=== PATIENT | female | born 1940 | race Caucasian/White ===

== ENCOUNTER 2020-05-02 07:12 | Outpatient (REF) | payer MEDICARE, OTHER, SELFPAY ==
[2020-05-02 07:45] LABS: MANUAL DIFF FLAG NO
[2020-05-02 07:49] LABS: Basophils Absolute Auto 0.1 X10*3/uL (0.0-0.2); Basophils Percent Auto 1.2 % (0-2); Eosinophils Absolute Auto 0.2 X10*3/uL (0.0-0.4); Eosinophils Percent Auto 4.1 % (0-4); Hematocrit 40.1 % (37-47); Hemoglobin 13.3 g/dl (12.0-16.0); Imm Gran Abs Auto 0.01 X10*3/uL (0.00-0.03); Imm Gran Pct Auto 0.2 % (0.0-0.4); Lymphocytes Absolute Auto 1.5 X10*3/uL (1.2-4.9); Lymphocytes Percent Auto 29.2 % (20-40); Mean Corpuscular HGB Conc 33.2 g/dl (31.0-35.0); Mean Corpuscular Hemoglobin 30.2 pg (27.0-33.0); Mean Corpuscular Volume 91.1 fL (80-98); Mean Platelet Volume 9.7 fL (9.4-12.3); Monocytes Absolute Auto 0.7 X10*3/uL (0.1-1.2); Monocytes Percent Auto 12.9 % (2-11); Neutrophils Absolute Auto 2.7 X10*3/uL (2.0-8.3); Neutrophils Percent Auto 52.4 % (45-73); Platelet Count 54 X10*3/uL (160-400); White Blood Count 5.1 X10*3/uL (4.8-10.8)
[2020-05-02 08:28] LABS: Erythrocyte Sedimentation Rate 5 MM/HR (0-20)
[2020-05-02 09:02] LABS: Alanine Aminotransferase 11 U/L (0-31); Albumin Level 4.2 g/dL (3.5-5.0); Alkaline Phosphatase 64 U/L (39-117); Anion Gap 16 (12-20); Aspartate Amino Transferase 22 U/L (5-31); Bilirubin Total 0.7 mg/dL (0.0-1.0); Blood Urea Nitrogen 15 mg/dL (9-16); Calcium 8.8 mg/dL (8.4-10.2); Carbon Dioxide 25 mmol/L (22-29); Chloride 101 mmol/L (96-108); Estimated Glomerular Filt Rate > 60; Glucose Fasting 67 mg/dL (60-99); Lactate Dehydrogenase 263 U/L (122-220); Potassium 4.4 mmol/L (3.3-5.1); Sodium 138 mmol/L (135-145)
== END 2020-05-02 07:13 | disposition home or self-care (01) ==
LOC: HO.LAB 07:12
PROVIDERS: PCP Internal Medicine Medical Oncology; Visit Provider Internal Medicine Medical Oncology
DX: C85.80 Other specified types of non-Hodgkin lymphoma, unspecified site (principal); D69.6 Thrombocytopenia, unspecified; D72.819 Decreased white blood cell count, unspecified
CPT/HCPCS: 36415; 80053; 83615; 85025; 85652

== ENCOUNTER 2020-05-06 05:58 | Outpatient (REF) | payer MEDICARE, OTHER, SELFPAY ==
--- NOTE | ~2020-05-06 | CT_ITS ---
EXAMINATION: CT ABDOMEN AND PELVIS WITH CONTRAST CLINICAL INFORMATION: Thrombocytopenia and leukopenia COMPARISON: Previous CT scans most recent November 2019 TECHNIQUE: Multidetector volumetric images were obtained from the superior aspect of the liver through the pubic symphysis following administration 85 mL of Omnipaque 350 intravenous contrast. Sagittal and coronal reformatted images were obtained on the technologist's workstation. Oral contrast: Yes This CT examination was performed using dose optimization techniques as appropriate, variously including the following: *Automated exposure control *Adjustment of mA and/or kV according to patient size (this includes techniques or standardized protocols for targeted exams where dose is matched to indication/reason for exam; i.e. extremities or head) *Use of iterative reconstruction technique DLP: 316 mGy-cm FINDINGS: LUNG BASES: There is a small right diaphragmatic hernia containing liver. The lung bases are otherwise clear. LIVER, GALLBLADDER, AND BILIARY TREE: There is a small right diaphragmatic hernia containing the liver. This area measures approximately 3 cm axial image 12 series 3. There are several small low-attenuation liver lesions probably representing cysts that are stable. Largest measures 7 mm in the medial segment of the left lobe axial image 13 series 3. No other focal liver lesion is seen. The gallbladder is normal. There is no biliary duct dilatation. PANCREAS: Unremarkable. SPLEEN: Unremarkable. ADRENAL GLANDS: Unremarkable. KIDNEYS AND URETERS: The kidneys are normal in size, shape, and attenuation. No hydronephrosis, hydroureter, or calculi seen. No perinephric stranding. BLADDER: Unremarkable. GASTROINTESTINAL TRACT: There is stool throughout the colon suggestive of constipation. The small and large bowel are otherwise unremarkable. The appendix is is not identified. The stomach is unremarkable. ABDOMINAL WALL: No significant hernia is appreciated. LYMPH NODES: Normal. VASCULAR: There is evidence of atherosclerotic disease. Lower abdominal retroperitoneal lymphadenopathy encases the lower abdominal aorta and left iliac vessels. The left common external iliac and common femoral veins are significantly narrowed due to the lymphadenopathy. PELVIC VISCERA: There are enlarged left retroperitoneal lymph nodes. Largest clayton mass measures 9 x 3.5 cm in AP and transverse dimension along the left iliac vessels axial image 62 series 3. There are enlarged left inguinal lymph nodes. There are postsurgical changes in the left inguinal region and abnormal enhancing soft tissue adjacent to the surgical clips measuring 2.2 x 3.2 cm that is unchanged. There are enlarged lower abdominal retroperitoneal lymph nodes. These encase the left common iliac vessels. This appears unchanged. No new adenopathy is seen. This is not appreciably changed compared to recent exams however is gradually restaging when compared with older exams going back to 2015. OSSEOUS STRUCTURES: There are degenerative changes of the spine. There is mild anterior subluxation of L4 with respect to L5 that is unchanged. Is a small sclerotic lesion in the left L5 vertebral body that is unchanged. CT/CT abdomen pelvis w con IMPRESSION: No change in left pelvic, inguinal and lower abdominal retroperitoneal lymphadenopathy. Small right diaphragmatic hernia containing the liver. Stable small probable liver cysts. Stool throughout the colon suggestive of constipation.
[2020-05-06] MEDS: Barium Sulfate Oral (Mocha) 450 ML ORAL.SUSP 900 ML PO (08:20)
[2020-05-06] MEDS: iohexoL 350 MG/ML 100 ML INFUS..BTL 85 ML IV (08:20)
== END 2020-05-06 05:59 | disposition home or self-care (01) ==
LOC: HO.CT 05:58
PROVIDERS: Visit Provider Internal Medicine Medical Oncology
DX: C85.80 Other specified types of non-Hodgkin lymphoma, unspecified site (principal); D69.6 Thrombocytopenia, unspecified
CPT/HCPCS: 74177; Q9967

== ENCOUNTER 2020-06-05 10:29 | Emergency (ER) | payer MEDICARE, OTHER, SELFPAY ==
--- NOTE | 2020-06-05 | ECG_ITS ---
Test Reason : CHEST PAIN Blood Pressure : / mmHG Vent. Rate : 077 BPM Atrial Rate : 077 BPM P-R Int : 142 ms QRS Dur : 066 ms QT Int : 386 ms P-R-T Axes : 056 -15 042 degrees QTc Int : 436 ms Normal sinus rhythm Normal ECG No previous ECGs available Referred By: Generic ED Physician Electronically Signed By:KIA CHAVIS MD
[2020-06-05 10:37] VITALS: BP 138/95; PULSE 94; O2SAT 98
[2020-06-05 10:40] VITALS: BP 122/77; PULSE 80; RESP 18; TEMP 36.6; O2SAT 97; BMI 21.1
[2020-06-05 10:50] LABS: Glucose, Whole Blood 85 mg/dL (60-115)
[2020-06-05 11:49] LABS: Monocytes Percent Auto 8.4 % (2-11); PLT CLUMP 1; SCAN SMEAR FLAG 1
[2020-06-05 11:51] LABS: Basophils Absolute Auto 0.1 X10*3/uL (0.0-0.2); Eosinophils Absolute Auto 0.1 X10*3/uL (0.0-0.4); Eosinophils Percent Auto 1.6 % (0-4); Hematocrit 36.8 % (37-47); Imm Gran Abs Auto 0.01 X10*3/uL (0.00-0.03); Imm Gran Pct Auto 0.2 % (0.0-0.4); Lymphocytes Absolute Auto 0.9 X10*3/uL (1.2-4.9); Lymphocytes Percent Auto 17.5 % (20-40); Mean Corpuscular HGB Conc 32.6 g/dl (31.0-35.0); Mean Corpuscular Hemoglobin 29.7 pg (27.0-33.0); Mean Corpuscular Volume 91.1 fL (80-98); Monocytes Absolute Auto 0.4 X10*3/uL (0.1-1.2); Neutrophils Absolute Auto 3.7 X10*3/uL (2.0-8.3); Neutrophils Percent Auto 71.3 % (45-73); Red Blood Count 4.04 X10*6/uL (4.20-5.50); White Blood Count 5.1 X10*3/uL (4.8-10.8)
[2020-06-05 12:04] LABS: Platelet Count 50 X10*3/uL (160-400)
[2020-06-05 12:14] LABS: Anion Gap 12 (12-20); Blood Urea Nitrogen 21 mg/dL (9-16); Calcium 9.5 mg/dL (8.4-10.2); Carbon Dioxide 28 mmol/L (22-29); Chloride 102 mmol/L (96-108); Creatinine Clr Calc Pharmacy 41.5; Estimated Glomerular Filt Rate > 60; Glucose Random 91 mg/dL (60-115); Potassium 4.4 mmol/L (3.3-5.1); Sodium 138 mmol/L (135-145)
[2020-06-05 12:23] LABS: Troponin-I High Sensitivity < 3.5 ng/L (<3.5-17.0)
[2020-06-05 13:12] VITALS: BP 105/59; PULSE 77; RESP 16; O2SAT 97
--- NOTE | 2020-06-05 13:40 | ED_ITS ---
HPI - Chest Pain General Chief Complaint: Chest Pain Stated Complaint: CHEST PAIN,NITRO AND ASA GIVEN Time Seen by Provider: 06/05/20 12:37 Source: patient Mode of arrival: EMS Limitations: no limitations History of Present Illness HPI narrative: 80-year-old female who presents emergency department for evaluation of chest pain and lightheadedness. The patient states that she was squatting down to look at a computer when she felt lightheaded and dizzy. She is they get describing the lightheaded sensation. She states that she then developed pain in the center of her chest. She points to her sternum when asked to localize the pain. She describes the pain as a pressure-like sensation. The pain lasted 5-10 minutes. The episode occurred around 10:00 a.m. The patient's daughter who is a nurse, had the patient sit down and put the patient's legs up and the patient's symptoms improved. Patient states that this is her 1st episode of this type of event. She states she got up this morning and went on her usual walk at the mall which is 1.5 miles and distance and she had no symptoms. She states that she has received 2 of her 5 eyes are vaccines and has not had COVID-19. 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 She denies tobacco, alcohol and drug use. She is and her is here in the emergency department. Medical History (Updated 06/05/20 @ 13:40 by Iggy Raygoza MD) Non-Hodgkin lymphoma Social History Social History Smoked in Last 30 Days: No Use of substances other than those prescribed or required for medical reasons: No Advance Directives: Yes Advance Directives Information Provided: Yes Advance Directives on File: No Physical Exam Vital Signs: Vital Signs: Last Vital Signs Temp 97.9 F 06/05/20 10:40 Pulse 77 06/05/20 13:12 Resp 16 06/05/20 13:12 BP 105/59 L 06/05/20 13:12 Pulse Ox 97 06/05/20 13:12 Body Mass Index 21.1 Const: General: cooperative and healthy appearing O rientation/consciousness: oriented to person and oriented to place Limita tions: no limitations HENMT: Head: Yes normal to inspection, Yes normocephalic and Yes atraumatic Ears: external ears normal General nose exam: Normal external nose present Face and sinus: Yes normal facial exam Mouth: Normal oral and palatal mucosa present Throat: Yes posterior oropharynx normal Eyes: Periorbital: periorbital findings normal Eyelids: Yes eyelids normal Conjunctivae: conjunctivae normal Sclerae: sclerae normal Corneas: corneas normal Pupils: Equal, round and reactive pupils present Direct Ophthalmoscopy: normal light reflex Neck: Neck: Yes full ROM, Yes no lymphadenopathy, Yes no meningeal signs, Yes trachea midline and Yes supple Chest: Chest palpation & inspection: normal inspection of the chest and normal palpation of entire chest wall Resp: Effort & Inspection: normal respiratory effort and able to speak in complete sentences Auscultation: clear to auscultation bilaterally Cardio: Rate: regular rate Rhythm: regular rhythm Heart sounds: S1 normal heart sound present, S2 normal heart sound present and no murmurs GI: Inspection: Yes normal to inspection Palpation (GI): Soft to palpation, nontender, no guarding, not rigid and No hepatosplenomegaly present : General: Yes no CVA tenderness Back/Spine/Pelvis: Back: no CVA tenderness Cervical Spine: normal cervical lordosis Thoracic/Lumbar Spine: thoracic and lumbar spine normal to inspection Skin: Lesions: no lesions Rashes: no rashes Wounds: no wounds Neuro: General: oriented to person, oriented to place and no meningeal signs Cranial nerves: Yes CN's II-XII intact bilaterally and Yes Equal, round and reactive pupils present Cognition (Neuro): normal cognition Motor exam (neuro): 5/5 motor strength present throughout Extrem: General: Yes normal to inspection and Yes full ROM Psych: Appearance: well kempt Mental Status: mental status grossly normal Speech and movement: Normal speech and movement present Affect: normal affect Attitude: cooperative Thought process: Normal thought process present Thought content: Normal thought content present Course Course Course Narrative: 80-year-old female who presents emergency department for e valuation of lightheadedness and chest pain the lasted approximately 10 minutes that occurred when she was squatting down to look at a computer monitor. The patient is symptom-free on presentation to the emergency department. Physical examination was unremarkable. Laboratory evaluation was normal with a nondetectable troponin. Twelve EKG was normal as well. At this time, I suspect the patient's symptoms were consistent with a vasovagal near-syncope and I did discuss this with the patient, the patient's the patient's daughter who is a nurse. The patient will be discharged home. She was given verbal and printed instructions advised to follow up with her doctor for re-evaluation. She was advised return if her symptoms get worse or she develops any new symptoms that are concerning to her. MDM - Chest Pain Lab Data Result diagrams: 06/05/20 11:37 06/05/20 11:37 Labs: Lab Results 06/05/20 06/05/20 06/05/20 Range/Units 10:41 11:37 11:37 WBC 5.1 (4.8-10.8) X10*3/uL RBC 4.04 L (4.20-5.50) X10*6/uL Hgb 12.0 (12.0-16.0) g/dl Hct 36.8 L (37-47) % MCV 91.1 (80-98) fL MCH 29.7 (27.0-33.0) pg MCHC 32.6 (31.0-35.0) g/dl RDW 12.0 (11.0-16.0) % Plt Count 50 L (160-400) X10*3/uL MPV 10.0 (9.4-12.3) fL Immature Gran % (Auto) 0.2 (0.0-0.4) % Neut % (Auto) 71.3 (45-73) % Lymph % (Auto) 17.5 L (20-40) % [place] % (Auto) 8.4 (2-11) % Eos % (Auto) 1.6 (0-4) % Baso % (Auto) 1.0 (0-2) % Lymph # (Auto) 0.9 L (1.2-4.9) X10*3/uL [place] # (Auto) 0.4 (0.1-1.2) X10*3/uL Eos # (Auto) 0.1 (0.0-0.4) X10*3/uL Baso # (Auto) 0.1 (0.0-0.2) X10*3/uL Abs Immat Gran (auto) 0.01 (0.00-0.03) X10*3/uL Absolute Neuts (auto) 3.7 (2.0-8.3) X10*3/uL Absolute Nucleated RBC 0.000 (0.0-0.012) X10*3/uL Nucleated RBC % (auto) 0.0 (0.0-0.2) /100WBC PT 12.0 (10.8-13.0) SEC INR 1.0 (0.9-1.1) Sodium (135-145) mmol/L Potassium (3.3-5.1) mmol/L Chloride (96-108) mmol/L Carbon Dioxide (22-29) mmol/L Anion Gap (12-20) BUN (9-16) mg/dL Creatinine (0.5-1.4) mg/dL Estim Creat Clear Calc Estimated GFR POC Glucose 85 (60-115) mg/dL Random Glucose (60-115) mg/dL Calcium (8.4-10.2) mg/dL Troponin I High Sens (<3.5-17.0) ng/L 06/05/20 06/05/20 Range/Units 11:37 11:37 WBC (4.8-10.8) X10*3/uL RBC (4.20-5.50) X10*6/uL Hgb (12.0-16.0) g/dl Hct (37-47) % MCV (80-98) fL MCH (27.0-33.0) pg MCHC (31.0-35.0) g/dl RDW (11.0-16.0) % Plt Count (160-400) X10*3/uL MPV (9.4-12.3) fL Immature Gran % (Auto) (0.0-0.4) % Neut % (Auto) (45-73) % Lymph % (Auto) (20-40) % [place] % (Auto) (2-11) % Eos % (Auto) (0-4) % Baso % (Auto) (0-2) % Lymph # (Auto) (1.2-4.9) X10*3/uL [place] # (Auto) (0.1-1.2) X10*3/uL Eos # (Auto) (0.0-0.4) X10*3/uL Baso # (Auto) (0.0-0.2) X10*3/uL Abs Immat Gran (auto) (0.00-0.03) X10*3/uL Absolute Neuts (auto) (2.0-8.3) X10*3/uL Absolute Nucleated RBC (0.0-0.012) X10*3/uL Nucleated RBC % (auto) (0.0-0.2) /100WBC PT (10.8-13.0) SEC INR (0.9-1.1) Sodium 138 (135-145) mmol/L Potassium 4.4 (3.3-5.1) mmol/L Chloride 102 (96-108) mmol/L Carbon Dioxide 28 (22-29) mmol/L Anion Gap 12 (12-20) BUN 21 H (9-16) mg/dL Creatinine 0.75 (0.5-1.4) mg/dL Estim Creat Clear Calc 41.5 Estimated GFR > 60 POC Glucose (60-115) mg/dL Random Glucose 91 (60-115) mg/dL Calcium 9.5 D (8.4-10.2) mg/dL Troponin I High Sens < 3.5 (<3.5-17.0) ng/L ECG Data ECG #1: Interpretation: 1041: Normal sinus rhythm rate of 77, normal [place], QRS and QTC intervals, no ST segment elevation or depression, Q-wave in V1, no old EKG for comparison, this is a normal EKG. Discharge Plan Discharge Clinical Impression: Vasovagal near syncope Chest pain Qualifiers: Chest pain type: other chest pain Qualified Code(s): R07.89 - Other chest pain Patient Disposition: Home, Self-Care Instructions: Near Syncope (ED) Additional Instructions: Your EKG was unremarkable. Your blood work was normal including a nondetectable troponin. Your presentation is consistent with vasovagal near-syncope (almost fainting secondary to squatting down). Follow-up with your doctor in 2 days. Please return to the emergency department if your symptoms get worse or if you develop any symptoms that are concerning to you.
== END 2020-06-05 13:54 | disposition home or self-care (01) ==
PROVIDERS: Emergency Provider Emergency Medicine Emergency Medical Services; PCP Internal Medicine Medical Oncology
DX: R55 Syncope and collapse (principal); R07.89 Other chest pain
CPT/HCPCS: 36415; 80048; 82947; 84484; 85025; 85610; 93005; 99283; 99284

== ENCOUNTER 2020-08-05 07:13 | Outpatient (REF) | payer MEDICARE, OTHER, SELFPAY ==
[2020-08-05 08:10] LABS: MANUAL DIFF FLAG NO
[2020-08-05 08:28] LABS: Basophils Absolute Auto 0.1 X10*3/uL (0.0-0.2); Basophils Percent Auto 1.4 % (0-2); Eosinophils Absolute Auto 0.1 X10*3/uL (0.0-0.4); Eosinophils Percent Auto 2.6 % (0-4); Hematocrit 37.7 % (37-47); Hemoglobin 12.1 g/dl (12.0-16.0); Imm Gran Abs Auto 0.02 X10*3/uL (0.00-0.03); Imm Gran Pct Auto 0.4 % (0.0-0.4); Lymphocytes Absolute Auto 0.9 X10*3/uL (1.2-4.9); Lymphocytes Percent Auto 18.4 % (20-40); Mean Corpuscular HGB Conc 32.1 g/dl (31.0-35.0); Mean Corpuscular Hemoglobin 29.4 pg (27.0-33.0); Mean Corpuscular Volume 91.5 fL (80-98); Mean Platelet Volume 9.3 fL (9.4-12.3); Monocytes Absolute Auto 0.5 X10*3/uL (0.1-1.2); Monocytes Percent Auto 10.1 % (2-11); Neutrophils Absolute Auto 3.4 X10*3/uL (2.0-8.3); Neutrophils Percent Auto 67.1 % (45-73); Red Blood Count 4.12 X10*6/uL (4.20-5.50); White Blood Count 5.1 X10*3/uL (4.8-10.8)
[2020-08-05 08:29] LABS: Platelet Count 65 X10*3/uL (160-400)
[2020-08-05 08:30] LABS: Alanine Aminotransferase 8 U/L (0-31); Alkaline Phosphatase 75 U/L (39-117); Anion Gap 14 (12-20); Aspartate Amino Transferase 16 U/L (5-31); Bilirubin Total 0.3 mg/dL (0.0-1.0); Blood Urea Nitrogen 13 mg/dL (9-16); Calcium 9.2 mg/dL (8.4-10.2); Carbon Dioxide 27 mmol/L (22-29); Chloride 101 mmol/L (96-108); Estimated Glomerular Filt Rate > 60; Glucose Random 93 mg/dL (60-115); Lactate Dehydrogenase 185 U/L (122-220); Sodium 138 mmol/L (135-145); Total Protein 6.5 g/dL (6.5-8.0)
[2020-08-05 09:09] LABS: Erythrocyte Sedimentation Rate 7 MM/HR (0-20)
== END 2020-08-05 07:14 | disposition home or self-care (01) ==
LOC: HO.LAB 07:13
PROVIDERS: PCP Internal Medicine Medical Oncology; Visit Provider Internal Medicine Medical Oncology
DX: C85.80 Other specified types of non-Hodgkin lymphoma, unspecified site (principal); D69.6 Thrombocytopenia, unspecified; D72.819 Decreased white blood cell count, unspecified
CPT/HCPCS: 36415; 80053; 83615; 85025; 85652

== ENCOUNTER 2020-11-06 07:32 | Outpatient (REF) | payer MEDICARE, OTHER, SELFPAY ==
[2020-11-06 08:22] LABS: MANUAL DIFF FLAG NO
[2020-11-06 08:28] LABS: Basophils Absolute Auto 0.1 X10*3/uL (0.0-0.2); Basophils Percent Auto 2.1 % (0-2); Eosinophils Absolute Auto 0.1 X10*3/uL (0.0-0.4); Eosinophils Percent Auto 3.1 % (0-4); Hematocrit 38.5 % (37-47); Hemoglobin 12.9 g/dl (12.0-16.0); Imm Gran Abs Auto 0.02 X10*3/uL (0.00-0.03); Imm Gran Pct Auto 0.5 % (0.0-0.4); Lymphocytes Absolute Auto 0.9 X10*3/uL (1.2-4.9); Lymphocytes Percent Auto 21.9 % (20-40); Mean Corpuscular HGB Conc 33.5 g/dl (31.0-35.0); Mean Corpuscular Volume 89.5 fL (80-98); Mean Platelet Volume 9.5 fL (9.4-12.3); Monocytes Absolute Auto 0.5 X10*3/uL (0.1-1.2); Monocytes Percent Auto 11.1 % (2-11); Neutrophils Absolute Auto 2.6 X10*3/uL (2.0-8.3); Neutrophils Percent Auto 61.3 % (45-73); Red Cell Distribution Width 12.5 % (11.0-16.0); White Blood Count 4.2 X10*3/uL (4.8-10.8)
[2020-11-06 08:29] LABS: Platelet Count 47 X10*3/uL (160-400)
[2020-11-06 09:14] LABS: Alanine Aminotransferase 8 U/L (0-31); Albumin Level 3.9 g/dL (3.5-5.0); Alkaline Phosphatase 76 U/L (39-117); Anion Gap 13 (12-20); Aspartate Amino Transferase 17 U/L (5-31); Bilirubin Total 0.4 mg/dL (0.0-1.0); Blood Urea Nitrogen 11 mg/dL (9-16); Calcium 9.2 mg/dL (8.4-10.2); Carbon Dioxide 25 mmol/L (22-29); Chloride 102 mmol/L (96-108); Estimated Glomerular Filt Rate > 60; Glucose Random 102 mg/dL (60-115); Lactate Dehydrogenase 162 U/L (122-220); Sodium 136 mmol/L (135-145); Total Protein 6.3 g/dL (6.5-8.0)
[2020-11-06 09:18] LABS: Erythrocyte Sedimentation Rate 7 MM/HR (0-20)
== END 2020-11-06 07:33 | disposition home or self-care (01) ==
LOC: HO.LAB 07:32
PROVIDERS: PCP Internal Medicine Medical Oncology; Visit Provider Internal Medicine Medical Oncology
DX: C85.80 Other specified types of non-Hodgkin lymphoma, unspecified site (principal); D69.6 Thrombocytopenia, unspecified
CPT/HCPCS: 36415; 80053; 83615; 85025; 85652

== ENCOUNTER 2020-11-18 07:51 | Outpatient (REF) | payer MEDICARE, OTHER, SELFPAY ==
--- NOTE | ~2020-11-18 | CT_ITS ---
EXAMINATION: CT ABDOMEN AND PELVIS WITH CONTRAST CLINICAL INFORMATION: Lymphoma COMPARISON: Previous CT scan of the abdomen and pelvis most recent May 2020 TECHNIQUE: Multidetector volumetric images were obtained from the superior aspect of the liver through the pubic symphysis following administration 85 mL of Omnipaque 350 intravenous contrast. Sagittal and coronal reformatted images were obtained on the technologist's workstation. Oral contrast: Yes This CT examination was performed using dose optimization techniques as appropriate, variously including the following: *Automated exposure control *Adjustment of mA and/or kV according to patient size (this includes techniques or standardized protocols for targeted exams where dose is matched to indication/reason for exam; i.e. extremities or head) *Use of iterative reconstruction technique DLP: 295 mGy-cm FINDINGS: LUNG BASES: There is a soft tissue mass at the right lung base likely representing small diaphragmatic hernia containing the liver. This measures 2.7 x 2.8 cm axial image 11 series 3. The lung bases are otherwise unremarkable. LIVER, GALLBLADDER, AND BILIARY TREE: Right diaphragmatic hernia containing the liver as above. There are small liver cysts that are stable. No other focal liver lesion is seen. The gallbladder is normal. There is no biliary duct dilatation. PANCREAS: Unremarkable. SPLEEN: Unremarkable. ADRENAL GLANDS: Unremarkable. KIDNEYS AND URETERS: The kidneys are normal in size, shape, and attenuation. No hydronephrosis, hydroureter, or calculi seen. No perinephric stranding. BLADDER: Unremarkable. GASTROINTESTINAL TRACT: There is stool throughout the colon suggestive of constipation. Small and large bowel are otherwise unremarkable. The stomach is not optimally distended. The appendix is normal. ABDOMINAL WALL: There is a small left inguinal hernia containing fat and fluid. LYMPH NODES: There is slight interval increase in retroperitoneal lymphadenopathy in the abdomen and pelvis. Largest retroperitoneal lymph node is a left periaortic lymph node. This measures 1.6 x 1.9 cm axial image 29 series 3 compared to 1.4 x 1.7 cm May 2020. There is slight interval increase in size in the large clayton mass in the left pelvis and left inguinal region. This measures 9.2 x 3.6 cm in AP and transverse dimension compared to 8.7 x 3.3 cm May 2020. There is interval increase in left inguinal lymphadenopathy. There are postsurgical changes seen in the left inguinal region. There are small right inguinal lymph nodes that appear increased as well. VASCULAR: There is evidence of atherosclerotic disease. No aneurysm is seen. PELVIC VISCERA: Unremarkable. OSSEOUS STRUCTURES: There are degenerative changes of the spine. There is mild posterior subluxation of L5 with respect to L4 and S1 probably related to facet arthritis. There is a small sclerotic lesion in the left L5 vertebral body that is stable. CT/CT abdomen pelvis w con IMPRESSION: Slight interval increase in retroperitoneal lymphadenopathy in the abdomen and pelvis and bilateral inguinal lymphadenopathy compared to May 2020 exam. Small right diaphragmatic hernia containing the liver. Liver cyst..
[2020-11-18] MEDS: iohexoL 350 MG/ML 100 ML INFUS..BTL IV (11:25)
== END 2020-11-18 07:52 | disposition home or self-care (01) ==
LOC: HO.CT 07:51
PROVIDERS: PCP Internal Medicine Medical Oncology; Visit Provider Internal Medicine Medical Oncology
DX: C85.80 Other specified types of non-Hodgkin lymphoma, unspecified site (principal)
CPT/HCPCS: 74177; Q9967

== ENCOUNTER 2020-12-24 07:30 | Outpatient (REF) | payer MEDICARE, OTHER, SELFPAY ==
[2020-12-24 07:48] LABS: MANUAL DIFF FLAG NO
[2020-12-24 08:24] LABS: Basophils Percent Auto 1.1 % (0-2); Eosinophils Absolute Auto 0.3 X10*3/uL (0.0-0.4); Eosinophils Percent Auto 6.9 % (0-4); Hematocrit 37.7 % (37-47); Hemoglobin 12.2 g/dl (12.0-16.0); Imm Gran Abs Auto 0.02 X10*3/uL (0.00-0.03); Imm Gran Pct Auto 0.6 % (0.0-0.4); Lymphocytes Absolute Auto 0.5 X10*3/uL (1.2-4.9); Lymphocytes Percent Auto 14.9 % (20-40); Mean Corpuscular HGB Conc 32.4 g/dl (31.0-35.0); Mean Corpuscular Hemoglobin 29.1 pg (27.0-33.0); Mean Platelet Volume 10.1 fL (9.4-12.3); Monocytes Absolute Auto 0.4 X10*3/uL (0.1-1.2); Monocytes Percent Auto 9.6 % (2-11); Neutrophils Absolute Auto 2.4 X10*3/uL (2.0-8.3); Neutrophils Percent Auto 66.9 % (45-73); Red Blood Count 4.19 X10*6/uL (4.20-5.50); Red Cell Distribution Width 12.6 % (11.0-16.0); White Blood Count 3.6 X10*3/uL (4.8-10.8)
[2020-12-24 08:26] LABS: Platelet Count 30 X10*3/uL (160-400)
[2020-12-24 08:35] LABS: Alanine Aminotransferase 9 U/L (0-31); Alkaline Phosphatase 74 U/L (39-117); Anion Gap 12 (12-20); Aspartate Amino Transferase 18 U/L (5-31); Bilirubin Total 0.5 mg/dL (0.0-1.0); Blood Urea Nitrogen 10 mg/dL (9-16); Carbon Dioxide 26 mmol/L (22-29); Chloride 103 mmol/L (96-108); Estimated Glomerular Filt Rate > 60; Glucose Random 112 mg/dL (60-115); Potassium 3.9 mmol/L (3.3-5.1); Sodium 137 mmol/L (135-145); Total Protein 6.4 g/dL (6.5-8.0)
[2020-12-24 09:37] LABS: Erythrocyte Sedimentation Rate 6 MM/HR (0-20)
== END 2020-12-24 07:31 | disposition home or self-care (01) ==
LOC: HO.LAB 07:30
PROVIDERS: PCP Internal Medicine Medical Oncology; Visit Provider Internal Medicine Medical Oncology
DX: D69.6 Thrombocytopenia, unspecified (principal)
CPT/HCPCS: 36415; 80053; 85025; 85652

== ENCOUNTER 2020-12-30 14:38 | Outpatient (REF) | payer MEDICARE, OTHER, SELFPAY ==
[2020-12-30 14:51] LABS: MANUAL DIFF FLAG NO
[2020-12-30 15:28] LABS: Basophils Percent Auto 0.9 % (0-2); Eosinophils Absolute Auto 0.1 X10*3/uL (0.0-0.4); Eosinophils Percent Auto 3.2 % (0-4); Hematocrit 38.9 % (37-47); Hemoglobin 12.8 g/dl (12.0-16.0); Imm Gran Abs Auto 0.01 X10*3/uL (0.00-0.03); Imm Gran Pct Auto 0.3 % (0.0-0.4); Lymphocytes Absolute Auto 0.5 X10*3/uL (1.2-4.9); Lymphocytes Percent Auto 15.7 % (20-40); Mean Corpuscular HGB Conc 32.9 g/dl (31.0-35.0); Mean Corpuscular Hemoglobin 29.6 pg (27.0-33.0); Mean Platelet Volume 9.3 fL (9.4-12.3); Monocytes Absolute Auto 0.5 X10*3/uL (0.1-1.2); Neutrophils Absolute Auto 2.3 X10*3/uL (2.0-8.3); Neutrophils Percent Auto 65.9 % (45-73); Red Blood Count 4.32 X10*6/uL (4.20-5.50); Red Cell Distribution Width 12.8 % (11.0-16.0); White Blood Count 3.4 X10*3/uL (4.8-10.8)
[2020-12-30 15:32] LABS: Platelet Count 53 X10*3/uL (160-400)
== END 2020-12-30 14:39 | disposition home or self-care (01) ==
LOC: HO.LAB 14:38
PROVIDERS: PCP Internal Medicine Medical Oncology; Visit Provider Internal Medicine Medical Oncology
DX: D69.6 Thrombocytopenia, unspecified (principal); D72.819 Decreased white blood cell count, unspecified
CPT/HCPCS: 36415; 85025

== ENCOUNTER 2021-01-12 07:16 | Outpatient (REF) | payer MEDICARE, OTHER, SELFPAY ==
--- NOTE | ~2021-01-12 | MM_ITS ---
EXAMINATION: MM SCREENING DIGITAL BREAST TOMOSYNTHESIS, BILATERAL CLINICAL INFORMATION: Screening. Asymptomatic. The lifetime risk of breast cancer based on the Tyrer-Cuzick Model is 1%. COMPARISON: Mammography: 11/29/2019, 11/09/2018, 09/03/2014 TECHNIQUE: Digital breast tomosynthesis is performed in both the craniocaudal and mediolateral oblique views along with computer-aided detection (CAD). Synthesized 2D images are generated from the tomosynthesis. Additional left MLO view is provided. FINDINGS: There are scattered areas of fibroglandular density (ACR BI-RADS breast composition Category b). There are no significant masses, abnormal calcifications, or other abnormalities. No developing density. No significant changes. MM/MM tomosynthesis screening BI IMPRESSION: No mammographic evidence of malignancy. ASSESSMENT: BI-RADS 1: Negative RECOMMENDATION: Routine annual mammography screening. This patient's information was entered into a reminder system with a target due date for their next mammogram.
== END 2021-01-12 07:17 | disposition home or self-care (01) ==
LOC: HO.MAMMO 07:16
PROVIDERS: Visit Provider Internal Medicine Medical Oncology
DX: Z12.31 Encounter for screening mammogram for malignant neoplasm of breast (principal)
CPT/HCPCS: 77063; 77067

== ENCOUNTER 2021-01-12 08:03 | Outpatient (REF) | payer MEDICARE, OTHER, SELFPAY ==
[2021-01-12 08:27] LABS: MANUAL DIFF FLAG NO
[2021-01-12 08:50] LABS: Basophils Absolute Auto 0.1 X10*3/uL (0.0-0.2); Basophils Percent Auto 1.5 % (0-2); Eosinophils Absolute Auto 0.2 X10*3/uL (0.0-0.4); Eosinophils Percent Auto 4.9 % (0-4); Hematocrit 36.8 % (37.0-47.0); Hemoglobin 11.9 g/dl (12.0-16.0); Imm Gran Abs Auto 0.01 X10*3/uL (0.00-0.03); Imm Gran Pct Auto 0.3 % (0.0-0.4); Lymphocytes Absolute Auto 0.3 X10*3/uL (1.2-4.9); Lymphocytes Percent Auto 9.5 % (20-40); Mean Corpuscular HGB Conc 32.3 g/dl (31.0-35.0); Mean Corpuscular Hemoglobin 29.2 pg (27.0-33.0); Mean Corpuscular Volume 90.4 fL (80.0-98.0); Mean Platelet Volume 9.3 fL (9.4-12.3); Monocytes Absolute Auto 0.6 X10*3/uL (0.1-1.2); Monocytes Percent Auto 18.7 % (2-11); Neutrophils Absolute Auto 2.1 x10*3/uL (2.0-8.3); Neutrophils Percent Auto 65.1 % (45-73); Red Blood Count 4.07 X10*6/uL (4.20-5.50); Red Cell Distribution Width 12.9 % (11.0-16.0); White Blood Count 3.3 X10*3/uL (4.8-10.8)
[2021-01-12 08:52] LABS: Platelet Count 38 X10*3/uL (160-400)
== END 2021-01-12 08:04 | disposition home or self-care (01) ==
LOC: HO.LAB 08:03
PROVIDERS: PCP Internal Medicine Medical Oncology; Visit Provider Internal Medicine Medical Oncology
DX: D69.6 Thrombocytopenia, unspecified (principal); D72.819 Decreased white blood cell count, unspecified; Z12.31 Encounter for screening mammogram for malignant neoplasm of breast
CPT/HCPCS: 36415; 77063; 77067; 85025

== ENCOUNTER 2021-02-03 06:57 | Outpatient (REF) | payer MEDICARE, OTHER, SELFPAY ==
[2021-02-03 07:09] LABS: MANUAL DIFF FLAG NO
[2021-02-03 07:21] LABS: Basophils Percent Auto 0.9 % (0-2); Eosinophils Absolute Auto 0.2 X10*3/uL (0.0-0.4); Eosinophils Percent Auto 6.2 % (0-4); Hematocrit 37.5 % (37.0-47.0); Hemoglobin 12.2 g/dl (12.0-16.0); Lymphocytes Absolute Auto 0.4 X10*3/uL (1.2-4.9); Lymphocytes Percent Auto 13.4 % (20-40); Mean Corpuscular HGB Conc 32.5 g/dl (31.0-35.0); Mean Corpuscular Volume 92.4 fL (80.0-98.0); Monocytes Absolute Auto 0.4 X10*3/uL (0.1-1.2); Monocytes Percent Auto 11.8 % (2-11); Neutrophils Absolute Auto 2.2 x10*3/uL (2.0-8.3); Neutrophils Percent Auto 67.7 % (45-73); Red Blood Count 4.06 X10*6/uL (4.20-5.50); Red Cell Distribution Width 13.2 % (11.0-16.0); White Blood Count 3.2 X10*3/uL (4.8-10.8)
[2021-02-03 07:23] LABS: Platelet Count 47 X10*3/uL (160-400)
== END 2021-02-03 06:58 | disposition home or self-care (01) ==
LOC: HO.LAB 06:57
PROVIDERS: PCP Internal Medicine Medical Oncology; Visit Provider Internal Medicine Medical Oncology
DX: D69.6 Thrombocytopenia, unspecified (principal); C85.80 Other specified types of non-Hodgkin lymphoma, unspecified site
CPT/HCPCS: 36415; 85025

== ENCOUNTER 2021-04-30 07:15 | Outpatient (REF) | payer MEDICARE, OTHER, SELFPAY ==
[2021-04-30 07:34] LABS: MANUAL DIFF FLAG NO
[2021-04-30 08:28] LABS: Basophils Absolute Auto 0.1 X10*3/uL (0.0-0.2); Basophils Percent Auto 0.9 % (0-2); Eosinophils Absolute Auto 0.3 X10*3/uL (0.0-0.4); Eosinophils Percent Auto 5.6 % (0-4); Hematocrit 39.5 % (37.0-47.0); Hemoglobin 12.9 g/dl (12.0-16.0); Imm Gran Abs Auto 0.01 X10*3/uL (0.00-0.03); Imm Gran Pct Auto 0.2 % (0.0-0.4); Lymphocytes Absolute Auto 1.2 X10*3/uL (1.2-4.9); Lymphocytes Percent Auto 21.5 % (20-40); Mean Corpuscular HGB Conc 32.7 g/dl (31.0-35.0); Mean Corpuscular Volume 91.9 fL (80.0-98.0); Monocytes Absolute Auto 0.6 X10*3/uL (0.1-1.2); Monocytes Percent Auto 11.5 % (2-11); Neutrophils Absolute Auto 3.3 x10*3/uL (2.0-8.3); Neutrophils Percent Auto 60.3 % (45-73); Platelet Count 84 X10*3/uL (160-400); Red Cell Distribution Width 12.4 % (11.0-16.0); White Blood Count 5.4 X10*3/uL (4.8-10.8)
[2021-04-30 08:54] LABS: Lactate Dehydrogenase 193 U/L (122-220)
[2021-04-30 09:10] LABS: Erythrocyte Sedimentation Rate 7 MM/HR (0-20)
== END 2021-04-30 07:16 | disposition home or self-care (01) ==
LOC: HO.LAB 07:15
PROVIDERS: PCP Internal Medicine Medical Oncology; Visit Provider Internal Medicine Medical Oncology
DX: C85.80 Other specified types of non-Hodgkin lymphoma, unspecified site (principal)
CPT/HCPCS: 36415; 83615; 85025; 85652

== ENCOUNTER 2021-07-01 07:11 | Outpatient (REF) | payer MEDICARE, OTHER, SELFPAY ==
[2021-07-01 07:34] LABS: MANUAL DIFF FLAG NO
[2021-07-01 08:28] LABS: Basophils Absolute Auto 0.1 X10*3/uL (0.0-0.2); Basophils Percent Auto 1.2 % (0-2); Eosinophils Absolute Auto 0.2 X10*3/uL (0.0-0.4); Hematocrit 37.6 % (37.0-47.0); Hemoglobin 12.3 g/dl (12.0-16.0); Imm Gran Abs Auto 0.01 X10*3/uL (0.00-0.03); Imm Gran Pct Auto 0.2 % (0.0-0.4); Lymphocytes Absolute Auto 0.9 X10*3/uL (1.2-4.9); Lymphocytes Percent Auto 17.6 % (20-40); Mean Corpuscular HGB Conc 32.7 g/dl (31.0-35.0); Mean Corpuscular Hemoglobin 29.4 pg (27.0-33.0); Mean Platelet Volume 8.8 fL (9.4-12.3); Monocytes Absolute Auto 0.7 X10*3/uL (0.1-1.2); Monocytes Percent Auto 14.4 % (2-11); Neutrophils Absolute Auto 3.1 x10*3/uL (2.0-8.3); Neutrophils Percent Auto 62.6 % (45-73); Red Blood Count 4.18 X10*6/uL (4.20-5.50); White Blood Count 4.9 X10*3/uL (4.8-10.8)
[2021-07-01 08:29] LABS: Platelet Count 82 X10*3/uL (160-400)
[2021-07-01 08:45] LABS: Alanine Aminotransferase 8 U/L (0-31); Alkaline Phosphatase 81 U/L (39-117); Anion Gap 11 (12-20); Aspartate Amino Transferase 17 U/L (5-31); Bilirubin Total 0.5 mg/dL (0.0-1.0); Blood Urea Nitrogen 10 mg/dL (9-16); Calcium 9.2 mg/dL (8.4-10.2); Carbon Dioxide 27 mmol/L (22-29); Chloride 101 mmol/L (96-108); Estimated Glomerular Filt Rate > 60; Glucose Random 67 mg/dL (60-115); Lactate Dehydrogenase 181 U/L (122-220); Potassium 4.3 mmol/L (3.3-5.1); Sodium 135 mmol/L (135-145); Total Protein 6.7 g/dL (6.5-8.0)
[2021-07-01 09:06] LABS: Erythrocyte Sedimentation Rate 14 MM/HR (0-20)
== END 2021-07-01 07:12 | disposition home or self-care (01) ==
LOC: HO.LAB 07:11
PROVIDERS: PCP Internal Medicine Medical Oncology; Visit Provider Internal Medicine Medical Oncology
DX: C85.80 Other specified types of non-Hodgkin lymphoma, unspecified site (principal)
CPT/HCPCS: 36415; 80053; 83615; 85025; 85652

== ENCOUNTER 2021-09-10 07:21 | Outpatient (REF) | payer MEDICARE, OTHER, SELFPAY ==
[2021-09-10 07:44] LABS: MANUAL DIFF FLAG NO
[2021-09-10 08:55] LABS: Basophils Absolute Auto 0.1 X10*3/uL (0.0-0.2); Eosinophils Absolute Auto 0.2 X10*3/uL (0.0-0.4); Eosinophils Percent Auto 3.8 % (0-4); Hematocrit 37.1 % (37.0-47.0); Hemoglobin 12.3 g/dl (12.0-16.0); Imm Gran Abs Auto 0.02 X10*3/uL (0.00-0.03); Imm Gran Pct Auto 0.4 % (0.0-0.4); Lymphocytes Absolute Auto 0.9 X10*3/uL (1.2-4.9); Lymphocytes Percent Auto 17.4 % (20-40); Mean Corpuscular HGB Conc 33.2 g/dl (31.0-35.0); Mean Corpuscular Hemoglobin 29.4 pg (27.0-33.0); Mean Corpuscular Volume 88.8 fL (80.0-98.0); Mean Platelet Volume 8.8 fL (9.4-12.3); Monocytes Absolute Auto 0.6 X10*3/uL (0.1-1.2); Monocytes Percent Auto 11.7 % (2-11); Neutrophils Absolute Auto 3.3 x10*3/uL (2.0-8.3); Neutrophils Percent Auto 65.7 % (45-73); Platelet Count 79 X10*3/uL (160-400); Red Blood Count 4.18 X10*6/uL (4.20-5.50); Red Cell Distribution Width 12.2 % (11.0-16.0); White Blood Count 5.1 X10*3/uL (4.8-10.8)
[2021-09-10 09:11] LABS: Cholesterol 175 mg/dL
[2021-09-10 09:16] LABS: Alanine Aminotransferase 7 U/L (0-31); Albumin Level 4.1 g/dL (3.5-5.0); Alkaline Phosphatase 92 U/L (39-117); Anion Gap 11 (12-20); Aspartate Amino Transferase 17 U/L (5-31); Bilirubin Total 0.4 mg/dL (0.0-1.0); Blood Urea Nitrogen 13 mg/dL (9-16); Calcium 9.2 mg/dL (8.4-10.2); Carbon Dioxide 26 mmol/L (22-29); Chloride 102 mmol/L (96-108); Estimated Glomerular Filt Rate > 60; Glucose Random 71 mg/dL (60-115); Potassium 4.1 mmol/L (3.3-5.1); Sodium 135 mmol/L (135-145); Total Protein 6.7 g/dL (6.5-8.0)
[2021-09-10 09:25] LABS: Lactate Dehydrogenase 247 U/L (122-220)
[2021-09-10 09:33] LABS: Erythrocyte Sedimentation Rate 12 MM/HR (0-20)
[2021-09-10 09:34] LABS: Vitamin D 25-OH Total 35.9 ng/mL (>30)
== END 2021-09-10 07:22 | disposition home or self-care (01) ==
LOC: HO.LAB 07:21
PROVIDERS: Absent Provider Internal Medicine; PCP Internal Medicine Medical Oncology; Visit Provider Internal Medicine Medical Oncology
DX: C85.80 Other specified types of non-Hodgkin lymphoma, unspecified site (principal); M81.0 Age-related osteoporosis without current pathological fracture; D69.6 Thrombocytopenia, unspecified
CPT/HCPCS: 36415; 80053; 82306; 82465; 83615; 85025; 85652

== ENCOUNTER 2021-09-14 11:36 | Outpatient (REF) | payer MEDICARE, OTHER, SELFPAY ==
--- NOTE | ~2021-09-14 | XR_ITS ---
EXAMINATION: XR CHEST CLINICAL INFORMATION: Sternal pain. COMPARISON: Chest x-ray 12/25/2018 TECHNIQUE: 2 views of the chest were obtained. FINDINGS: No significant abnormality is noted involving the heart, lungs, mediastinum, bony thorax or soft tissues. XR/XR chest 2V IMPRESSION: Unremarkable examination.
--- NOTE | ~2021-09-14 | XR_ITS ---
EXAMINATION: XR clavicle RT, XR sternoclavicular joint BI CLINICAL INFORMATION: Clavicle and sternal pain. History of indolent non-Hodgkin's lymphoma. COMPARISON: None. TECHNIQUE: 2 views right clavicle; PA, BELARUSIAN, and FRANK views sternoclavicular joints FINDINGS: Right clavicle: No fracture or dislocation. Question lucent lesion of bone in the medial right clavicle as seen on the single view. Subchondral sclerosis and small osteophytes the AC joint compatible with mild degenerative change. Visualized right lung apex is grossly clear. Sternoclavicular joints: No appreciable fracture dislocation. Mild subchondral sclerosis and minimal osteophyte formation at the bilateral sternoclavicular joints compatible with mild degenerative change. No gross osseous lesion. Facet arthrosis in the lower cervical spine noted. Visualized lung apices are clear. XR/XR sternoclavicular joint BI IMPRESSION: 1. Question of a lucent lesion of bone in the medial right clavicle not confirmed on additional views. Suggest further evaluation with MRI. Please note that the sternum is not fully evaluated on this exam. 2. No fracture or dislocation. 3. Mild degenerative changes at bilateral sternoclavicular joints and right AC joint.
--- NOTE | ~2021-09-14 | XR_ITS ---
EXAMINATION: XR clavicle RT, XR sternoclavicular joint BI CLINICAL INFORMATION: Clavicle and sternal pain. History of indolent non-Hodgkin's lymphoma. COMPARISON: None. TECHNIQUE: 2 views right clavicle; PA, [place], and FRANK views sternoclavicular joints FINDINGS: Right clavicle: No fracture or dislocation. Question lucent lesion of bone in the medial right clavicle as seen on the single view. Subchondral sclerosis and small osteophytes the AC joint compatible with mild degenerative change. Visualized right lung apex is grossly clear. Sternoclavicular joints: No appreciable fracture dislocation. Mild subchondral sclerosis and minimal osteophyte formation at the bilateral sternoclavicular joints compatible with mild degenerative change. No gross osseous lesion. Facet arthrosis in the lower cervical spine noted. Visualized lung apices are clear. XR/XR clavicle RT IMPRESSION: 1. Question of a lucent lesion of bone in the medial right clavicle not confirmed on additional views. Suggest further evaluation with MRI. Please note that the sternum is not fully evaluated on this exam. 2. No fracture or dislocation. 3. Mild degenerative changes at bilateral sternoclavicular joints and right AC joint.
== END 2021-09-14 11:37 | disposition home or self-care (01) ==
LOC: HO.XRAY 11:36
PROVIDERS: PCP Internal Medicine Medical Oncology; Visit Provider Internal Medicine Medical Oncology
DX: C85.80 Other specified types of non-Hodgkin lymphoma, unspecified site (principal); R07.89 Other chest pain; M89.8X1 Other specified disorders of bone, shoulder
CPT/HCPCS: 71046; 71130; 73000

== ENCOUNTER 2021-10-08 07:08 | Outpatient (REF) | payer MEDICARE, OTHER, SELFPAY ==
[2021-10-08 07:13] LABS: MANUAL DIFF FLAG NO
[2021-10-08 07:33] LABS: Basophils Absolute Auto 0.1 X10*3/uL (0.0-0.2); Eosinophils Absolute Auto 0.2 X10*3/uL (0.0-0.4); Hematocrit 38.2 % (37.0-47.0); Hemoglobin 12.5 g/dl (12.0-16.0); Imm Gran Abs Auto 0.02 X10*3/uL (0.00-0.03); Imm Gran Pct Auto 0.4 % (0.0-0.4); Lymphocytes Absolute Auto 0.8 X10*3/uL (1.2-4.9); Lymphocytes Percent Auto 15.9 % (20-40); Mean Corpuscular HGB Conc 32.7 g/dl (31.0-35.0); Mean Corpuscular Hemoglobin 29.5 pg (27.0-33.0); Mean Corpuscular Volume 90.1 fL (80.0-98.0); Mean Platelet Volume 8.9 fL (9.4-12.3); Monocytes Absolute Auto 0.5 X10*3/uL (0.1-1.2); Monocytes Percent Auto 10.7 % (2-11); Neutrophils Absolute Auto 3.4 x10*3/uL (2.0-8.3); Red Blood Count 4.24 X10*6/uL (4.20-5.50); Red Cell Distribution Width 12.7 % (11.0-16.0)
[2021-10-08 07:37] LABS: Platelet Count 76 X10*3/uL (160-400)
[2021-10-08 07:58] LABS: Alanine Aminotransferase 9 U/L (0-31); Albumin Level 4.2 g/dL (3.5-5.0); Alkaline Phosphatase 98 U/L (39-117); Anion Gap 14 (12-20); Aspartate Amino Transferase 17 U/L (5-31); Bilirubin Total 0.5 mg/dL (0.0-1.0); Blood Urea Nitrogen 13 mg/dL (9-16); Calcium 9.4 mg/dL (8.4-10.2); Carbon Dioxide 26 mmol/L (22-29); Chloride 99 mmol/L (96-108); Estimated Glomerular Filt Rate > 60; Glucose Random 93 mg/dL (60-115); Lactate Dehydrogenase 202 U/L (122-220); Potassium 4.4 mmol/L (3.3-5.1); Sodium 135 mmol/L (135-145)
[2021-10-08 08:10] LABS: Erythrocyte Sedimentation Rate 12 MM/HR (0-20)
== END 2021-10-08 07:09 | disposition home or self-care (01) ==
LOC: HO.LAB 07:08
PROVIDERS: PCP Internal Medicine Medical Oncology; Visit Provider Internal Medicine Medical Oncology
DX: C85.80 Other specified types of non-Hodgkin lymphoma, unspecified site (principal)
CPT/HCPCS: 36415; 80053; 83615; 85025; 85652

== ENCOUNTER 2021-10-23 15:44 | Outpatient (REF) | payer MEDICARE, OTHER, SELFPAY ==
--- NOTE | ~2021-10-23 | MR_ITS ---
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 CT 06/06/2013. TECHNIQUE: Multisequence multidimensional MR acquisition of the chest performed before and after administration of 5 mL of Gadavist IV contrast. FINDINGS: There is abnormal appearance of the medial aspect of the right clavicle. There is loss of the normal bone marrow signal within expanded appearance. For instance the medial aspect of the clavicle measures 2.8 cm in AP dimension, compared to 1.6 cm on the left. There is a central area of increased T2 signal, which does not enhance. There is increased enhancement of the more peripheral aspect of the bone. The area of signal abnormality extends approximately 7 cm medial to lateral. The sternum appears normal. Normal left clavicle. There is heterogeneous appearance at the right humeral head, with nonspecific heterogeneous enhancement present. No focal lesion identified. The visualized lungs are grossly clear. Normal caliber aorta. No adenopathy seen.. MR/MR chest wo/w con IMPRESSION: Abnormal appearance of the medial aspect of the right clavicle, with bone marrow signal abnormality and expansion. This has the appearance of peripheral enhancement with central fluid, possibly necrosis. This is likely consistent with the clinical history of lymphoma. A CT may be useful to better delineate the current anatomy, if clinically indicated. No bone marrow signal abnormality of the sternum.
== END 2021-10-23 15:45 | disposition home or self-care (01) ==
LOC: HO.MRI 15:44
PROVIDERS: Visit Provider Internal Medicine Medical Oncology
DX: C85.80 Other specified types of non-Hodgkin lymphoma, unspecified site (principal); R07.89 Other chest pain; M89.8X1 Other specified disorders of bone, shoulder
CPT/HCPCS: 71552; A9585

== ENCOUNTER 2021-11-06 09:42 | Outpatient (REF) | payer MEDICARE, OTHER, SELFPAY ==
--- NOTE | ~2021-11-06 | US_ITS ---
EXAMINATION: US SOFT TISSUE OF THE NECK CLINICAL INFORMATION: Right neck lymph node. COMPARISON: PET/CT 11/11/2021 and MR of the chest 10/23/2021. TECHNIQUE: Linear transducer lane-scale and color Doppler examination of the 2 lumps in the right neck. FINDINGS: One palpable abnormality is in the anterior lower right neck. This appears complex cystic measuring 1.4 x 1.1 x 1.4 cm. This demonstrates some internal vascularity with a hilar pattern and is suggestive of a necrotic lymph node. There is a second palpable abnormality in the more inferior medial neck /suprahilarclavicular region adjacent to the right clavicular head. This is heterogeneous in echotexture and appears partially solid and partially cystic. This is irregularly-shaped and drapes over the right clavicular head. This measures 3.5 x 1.4 x 5.3 cm. When compared with previous PET/CT and MR of the chest, this probably represents metastatic disease to the bone and associated soft tissue mass. Differential would include infection. US/US soft tiss head and/or neck IMPRESSION: Palpable abnormalities correspond to a cystic right cervical lymph node and a complex soft tissue mass surrounding the right clavicular head likely due to metastatic disease or infection. Either lesion would be amenable to ultrasound-guided biopsy if clinically indicated.
== END 2021-11-06 09:43 | disposition home or self-care (01) ==
LOC: HO.US 09:42
PROVIDERS: Visit Provider Internal Medicine Medical Oncology
DX: C85.80 Other specified types of non-Hodgkin lymphoma, unspecified site (principal); R59.9 Enlarged lymph nodes, unspecified
CPT/HCPCS: 76536

== ENCOUNTER 2021-11-11 07:01 | Outpatient (REF) | payer MEDICARE, OTHER, SELFPAY ==
--- NOTE | ~2021-11-11 | PE_ITS ---
EXAMINATION: Fluorine-18 FDG PET/CT Scan CLINICAL INDICATION: Subsequent treatment management. Marginal zone lymphoma. For restaging. PROCEDURE: 59 minutes following the intravenous administration of 16.1 mCi of fluorine 18 FDG, images from the base of the skull to the mid thighs were obtained using a combined PET/CT scanner with CT scan based attenuation correction. No intravenous contrast was administered. Transverse, coronal, sagittal, and volume reconstruction projections were obtained. The patient's blood glucose as determined by a finger stick, was 81 mg/dl immediately prior to injection. The radiotracer was injected intravenously through left antecubital superficial vein, without any complications. Total CT exam dose-length product 217.68 mGy-cm * These CT images were obtained using dose optimization techniques as appropriate, variously including the following: Automated exposure control * Adjustment of mA and/or kV according to patient size (this includes techniques or standardized protocols for targeted exams where dose is matched to indication/reason for exam; i.e. extremities or head) * Use of iterative reconstruction technique COMPARISON: Most recent prior PET CT study done on 06/26/2014. FINDINGS: NECK AND VISUALIZED HEAD: No metabolically active disease is identified within the visualized part of the head. Interval development of 2 new approximately 1.5 and 1.7 cm maximum dimension oval-shaped right-sided neck masses identified, with SUV max of 12.0 and 9.4 respectively (105 and 131/698), most consistent pathologic lymphadenopathy. THORAX: 2 additional metabolically active lymph nodes are identified at the right subclavicular region with SUV max of 9.5 (156/698). A subcentimeter metabolically active lymph node is also identified within the left superior mediastinum posterior to the sternoclavicular joint with SUV max of 6.1 (165/698). Morphologically abnormal-appearing metabolically active right axillary lymph node is also present measures 2.5 cm at its maximum dimension with SUV max of 6.3 (213/698). ABDOMEN AND PELVIS: Interval development of extensive pathologically enlarged, morphologically abnormal left inguinal, left external, and common iliac lymphadenopathy present with SUV max of 20.5. The confluent left external iliac lymph node approximately measures 7.9 cm at its maximum anteroposterior dimension (516/698). Significant interval progression of disease since the prior study dated 06/26/2014. MUSCULOSKELETAL: At the site of the previously documented left thigh soft tissue mass as was seen on the prior study dated 06/26/2014, there are postsurgical changes present with mild residual increased radiotracer activity with SUV max of 3.1 (575/698), most consistent with postsurgical changes. Multifocal abnormal increased radiotracer activities are present involving the left ischial tuberosity, left iliac crest, right proximal femur around the greater trochanter, multiple bilateral ribs, the sternum and both clavicles (right greater than left). Specific note is made of pathological fracture associated with large soft tissue component at the medial end of the right clavicle. The findings are consistent with multifocal osseous metastatic disease with most pronounced changes seen at the medial end of the right clavicle. VASCULAR: Atherosclerotic disease of the aorta and is branches without aneurysm formation. PET/PET CT fusion skull to thigh IMPRESSION: 1. Abnormal study. Compared to most recent prior PET CT study dated 06/26/2014, interval development of multiple morphologically abnormal-appearing pathologically enlarged metabolically active lymph nodes are identified within the right-sided neck, right subarticular region, right axilla, left common iliac, left external iliac and left inguinal region, most consistent with pathology lymphadenopathy presumably related to previously documented, clinically known lymphoma and/or new metastatic disease from unknown primary. 2. Note is also made of multifocal extensive metabolically active osseous disease involving the thoracic cage, specifically multiple bilateral ribs, both clavicles (right greater than left), the sternum and the pelvis and the proximal right femur, also consistent with osseous involvement from known lymphoma or metastatic disease. Specific note is made of pathological fracture associated with a large soft tissue component at the medial end of the right clavicle associated with marked increase metabolic activity. All these findings involving the bones are new since the prior study dated 06/26/2014. 3. At the site of the prior soft tissue mass involving the proximal left thigh, there are postsurgical changes present with mild residual radiotracer activity with SUV max of 3.1, most consistent with expected postsurgical changes and unlikely to be local disease recurrence.
== END 2021-11-11 07:02 | disposition home or self-care (01) ==
LOC: HO.PET 07:01
PROVIDERS: Visit Provider Internal Medicine Medical Oncology
DX: Z13.89 Encounter for screening for other disorder (principal)

== ENCOUNTER 2021-11-23 08:40 | Outpatient (REF) | payer MEDICARE, OTHER, SELFPAY ==
--- NOTE | ~2021-11-23 | US_ITS ---
EXAMINATION: US-GUIDED FINE-NEEDLE ASPIRATION CLINICAL INFORMATION: Right neck lymph node. COMPARISON: PET CT 11/11/2021, ultrasound 11/24/2021 and MR 10/23/2021. TECHNIQUE: Following explaining ultrasound-guided right neck superficial lymph node biopsy procedure, benefits and risk, a written consent was obtained. Patient was placed supine with head turned to the left side and preliminary ultrasound imaging through the right neck was obtained. An optimal site was selected, marked, cleaned and draped in the usual sterile manner. 1% lidocaine was inserted at puncture site. A small incision was performed at the lateral peripheral aspect of the lymph node. An 18-gauge needle without a guide was inserted into the right neck lymph node and 3-pass fine-needle and 5-pass core biopsies of the neck lymph node was performed. Postprocedure, there was no hematoma visualized. Patient tolerated procedure extremely well. Simple Band-Aid applied postprocedure. FINDINGS: There is a heterogeneous-appearing lymph node in the right neck on preliminary ultrasound imaging. Successful 3 fine-needle aspirations and 5 core biopsies is performed through the right lateral neck lymph node. There is adequate tissue collected and sent to lab for flow cytometry, slide evaluation and in formalin. US/US guided fine needle asp IMPRESSION: Successful ultrasound-guided right neck lymph node biopsy performed. Patient tolerated the procedure extremely well.
--- NOTE | ~2021-11-23 | US_ITS ---
EXAMINATION: US-GUIDED FINE-NEEDLE ASPIRATION CLINICAL INFORMATION: Right neck lymph node. COMPARISON: PET CT 11/11/2021, ultrasound 11/24/2021 and MR 10/23/2021. TECHNIQUE: Following explaining ultrasound-guided right neck superficial lymph node biopsy procedure, benefits and risk, a written consent was obtained. Patient was placed supine with head turned to the left side and preliminary ultrasound imaging through the right neck was obtained. An optimal site was selected, marked, cleaned and draped in the usual sterile manner. 1% lidocaine was inserted at puncture site. A small incision was performed at the lateral peripheral aspect of the lymph node. An 18-gauge needle without a guide was inserted into the right neck lymph node and 3-pass fine-needle and 5-pass core biopsies of the neck lymph node was performed. Postprocedure, there was no hematoma visualized. Patient tolerated procedure extremely well. Simple Band-Aid applied postprocedure. FINDINGS: There is a heterogeneous-appearing lymph node in the right neck on preliminary ultrasound imaging. Successful 3 fine-needle aspirations and 5 core biopsies is performed through the right lateral neck lymph node. There is adequate tissue collected and sent to lab for flow cytometry, slide evaluation and in formalin. US/US biopsy lymph node IMPRESSION: Successful ultrasound-guided right neck lymph node biopsy performed. Patient tolerated the procedure extremely well.
[2021-11-23] MEDS: Lidocaine HCl 1 % MPF 5 ML VIAL SUBCUT (10:16)
== END 2021-11-23 08:41 | disposition home or self-care (01) ==
LOC: HO.US 08:40
PROVIDERS: Radiology Diagnostic Radiology; PCP Internal Medicine Medical Oncology; Visit Provider Internal Medicine Medical Oncology
DX: C85.80 Other specified types of non-Hodgkin lymphoma, unspecified site (principal); R59.9 Enlarged lymph nodes, unspecified
CPT/HCPCS: 10005; 36415; 38505; 76942; 88172; 88173; 88177; 88184; 88185; 88305; 88333; 88341; 88342; 88360

== ENCOUNTER → 2021-12-01 08:56 | Outpatient (BNV) | payer MEDICARE, OTHER, SELFPAY | PROVIDERS: PCP Internal Medicine Medical Oncology; Referring Provider Internal Medicine Medical Oncology; Visit Provider Internal Medicine | DX: C85.90 Non-Hodgkin lymphoma, unspecified, unspecified site (principal) | CPT/HCPCS: 99204; 99212; 99213; 99214; 99215; G2211 ==

== ENCOUNTER → 2021-12-04 08:13 | Outpatient (BNVA) | payer MEDICARE, OTHER, SELFPAY | PROVIDERS: PCP Internal Medicine Medical Oncology; Visit Provider Surgery | DX: C85.90 Non-Hodgkin lymphoma, unspecified, unspecified site (principal) | CPT/HCPCS: 99202 ==

== ENCOUNTER 2021-12-21 06:58 | Day surgery (SDC) | payer MEDICARE, OTHER, SELFPAY ==
--- NOTE | 2021-12-18 10:42 | P.CONAN_ITS ---
Documented by User: Bhumi Marie NP 12/18/21 10:44 HPI - Anesthesia Eval Consult details Narrative: 81yo F for Right Excision cervical lymph node Hx lymphoma PMFSH Active Problems Active Problems: All Active Problems (Updated 12/01/21 @ 12:12 by Ann Mannnig MD) Non-Hodgkin lymphoma (Acute) Past Medical History Medical History Bronchiectasis Diverticulosis Hernia Internal hemorrhoids Marginal zone lymphoma Non-Hodgkin lymphoma Osteopenia Pulmonary nodule Thrombocytopenia (~2012) Family History Family History Father Heart problem Alcoholism CVD (cardiovascular disease) Mother Brother Lung cancer Sister Heart valve replaced Brother Lung cancer Surgical History Surgical History History of lung surgery Social History Social History Alcohol intake: never Patient Tobacco Use Status: Never used Tobacco Second Hand Smoke Exposure: No Use of substances other than those prescribed or required for medical reasons: No Are you DNR?: No Advance Directives: No Advance Directives Information Provided: Yes Advance Directives on File: No Meds Allergies Allergy/AdvReac Type Severity Reaction Status Date / Time shrimp Allergy Intermediate Stomach Verified 12/04/21 08:35 Upset Home Medications Medication Instructions Recorded Confirmed Last Taken Type acetaminophen 325 mg tablet 325 mg PO Q6H PRN Pain 11/30/21 12/04/21 Unknown History calcium carbonate 600 mg calcium 600 mg PO DAILY 11/30/21 12/04/21 Unknown History (1,500 mg) tablet cholecalciferol (vitamin D3) 25 25 mcg PO DAILY 11/30/21 12/04/21 Unknown History mcg (1,000 unit) capsule (Vitamin D3) Exam Exam Date and Time: December 18, 2021 104 Pertinent Lab Results Pertinent Lab Results: Laboratory Tests 12/01/21 09:34 Sodium 135 Potassium 4.2 Chloride 99 Carbon Dioxide 27 BUN 10 Creatinine 0.71 Narrative Narrative: EKG 2020 Vent. Rate : 077 BPM ? ? Atrial Rate : 077 BPM ?? P-R Int : 142 ms? QRS Dur : 066 ms ? ? QT Int : 386 ms ? ? ? P-R-T Axes : 056 -15 042 degrees ?? QTc Int : 436 ms ? Normal sinus rhythm Normal ECG No previous ECGs available Assessment and Plan Assessment Anesthesia Assessment: Chart Reviewed Documented by User: Nicanor Kelley MD 12/21/21 08:13 [facility] Past Medical History Medical History Bronchiectasis Diverticulosis Hernia Internal hemorrhoids Marginal zone lymphoma Non-Hodgkin lymphoma Osteopenia Pulmonary nodule Thrombocytopenia (~2012) Family History Family History Father Heart problem Alcoholism CVD (cardiovascular disease) Mother Brother Lung cancer Sister Heart valve replaced Brother Lung cancer Family history of problems with anesthesia: No Surgical History Surgical History History of lung surgery History of Problems with Anesthesia: No Social History Social History Alcohol intake: never Patient Tobacco Use Status: Never used Tobacco Second Hand Smoke Exposure: No Use of substances other than those prescribed or required for medical reasons: No Are you DNR?: No Advance Directives: No Advance Directives Information Provided: Yes Advance Directives on File: No Meds Allergies Allergy/AdvReac Type Severity Reaction Status Date / Time shrimp Allergy Intermediate Stomach Verified 12/04/21 08:35 Upset Home Medications Medication Instructions Recorded Confirmed Last Taken Type acetaminophen 325 mg tablet 325 mg PO Q6H PRN Pain 11/30/21 12/04/21 Unknown History calcium carbonate 600 mg calcium 600 mg PO DAILY 11/30/21 12/04/21 Unknown History (1,500 mg) tablet cholecalciferol (vitamin D3) 25 25 mcg PO DAILY 11/30/21 12/04/21 Unknown History mcg (1,000 unit) capsule (Vitamin D3) Exam Airway Mallampati Class: II TM Dist: >3cm Neck ROM: Full Loose/Missing/Broken Teeth: No Heart: rrr Lungs: clear Assessment and Plan Final Anesthetic Review Family History of Problems with Anesthesia: No History of Problems with Anesthesia: No NPO: Yes ASA Class: III Final Preanesthetic Review: No Changes in Pt Med Stat, Meds/Allgs Chart Reviewed, Consent Obtained/Reviewed and Anes Risks/Benef Reviewed Patient Risk: Intermediate Procedure Risk: Low Anesthetic Plan Anesthetic Plan: GA and MAC: Disposition: Standard PACU
[2021-12-21 07:09] VITALS: BMI 20.9
[2021-12-21 07:25] VITALS: BP 144/66; PULSE 76; RESP 16; TEMP 36.1; O2SAT 97
[2021-12-21] MEDS: Lactated Ringers 1,000 ML 100 ML IVCONT (07:26)
[2021-12-21 07:42] LABS: Hemoglobin 11.6 g/dl (12.0-16.0); Mean Corpuscular HGB Conc 33.1 g/dl (31.0-35.0); Mean Corpuscular Hemoglobin 29.9 pg (27.0-33.0); Mean Corpuscular Volume 90.2 fL (80.0-98.0); Mean Platelet Volume 8.5 fL (9.4-12.3); Red Blood Count 3.88 X10*6/uL (4.20-5.50); Red Cell Distribution Width 12.1 % (11.0-16.0); White Blood Count 4.9 X10*3/uL (4.8-10.8)
[2021-12-21 07:59] LABS: Platelet Count 77 X10*3/uL (160-400)
--- NOTE | 2021-12-21 09:14 | MHC.SHP ---
Pre-Procedural Eval Section A Date of Service: 12/21/21 The patient is an INPATIENT: No Changes since office visit: Yes Patient answered all questions; No Cold of Flu in the past 2 weeks, No New Medical Problems and No Changes in Medication The History & Physical has been completed within 30 days and I have reviewed it.: Yes Section B Chief Complaint: Non-Hodgkin lymphoma, Allergies: Allergies Allergy/AdvReac Type Severity Reaction Status Date / Time shrimp Allergy Intermediate Stomach Verified 12/04/21 08:35 Upset Plan Diagnosis/Plan: Unchanged I have reviewed the history and physical and performed a pertinent physical examination on my patient. No changes have occurred unless specified.
--- NOTE | 2021-12-21 10:17 | P.OP_ITS ---
Operative Note Operative Note Date of Service: 12/21/21 Narrative: Preoperative diagnosis: Cervical lymphadenopathy Postoperative diagnosis: same Procedure: right cervical lymph node biopsy Surgeon: Man Ortega MD [place]ummel Selector: CAMELIA Leahy Anesthesia: MAC Indications for procedure: 81-year-old female patient with history of non- Hodgkin's lymphoma now with cervical and inguinal lymphadenopathy Operative findings: 1 cm enlarged lymph node right cervical, posterior to sternocleidomastoid muscle Specimen: cervical lymph node Estimated blood loss: less than 1 mL Complications: none Procedure details: patient was brought to the OR placed in a supine position. After administering light sedation, the right neck was prepped with Betadine and draped in a sterile fashion. Local anesthesia consisting of 0.5% bupivacaine was infiltrated the hind the sternocleidomastoid. This a longitudinal incision was then created with a scalpel carried out through subcutaneous tissue, past the latissimus muscle and down to the palpable lymph node. The lymph node was dissected from the surrounding tissue using electrocautery. The base of the node was then ligated using a 3-0 Polysorb suture. The specimen was passed off the table and sent to pathology for immediate gross. Wounds were checked for hemostasis with electrocautery. The platysmas muscle was then reapproximated using interrupted 3-0 Polysorb sutures. Dermis was reapproximated using interrupted 3-0 Polysorb sutures. skin was closed using Dermabond glue. The patient tolerated the procedure well. Sponge, instrument, and needle counts reported as correct. The patient was transferred to PACU in stable condition.
[2021-12-21 10:20] VITALS: BP 124/67; PULSE 70; RESP 17; TEMP 36.4; O2SAT 99
[2021-12-21 10:35] VITALS: BP 131/75; PULSE 73; RESP 20; O2SAT 99
[2021-12-21 10:50] VITALS: BP 146/76; PULSE 69; RESP 20; TEMP 36.5; O2SAT 98
== END 2021-12-21 11:25 | disposition home or self-care (01) ==
PROVIDERS: Nurse Practitioner; PCP Internal Medicine Medical Oncology; Visit Provider Surgery
PROC: (CPT 38510; principal; 2021-12-21 09:40)
DX: C85.10 Unspecified B-cell lymphoma, unspecified site (principal); R59.1 Generalized enlarged lymph nodes; J47.9 Bronchiectasis, uncomplicated
CPT/HCPCS: 38510; 36415; 85027; 88184; 88185; 88305; 88341; 88342; 88360; 88365; 88374; J0690; J2795

== ENCOUNTER → 2021-12-31 08:52 | Outpatient (BNVA) | payer MEDICARE, OTHER, SELFPAY | PROVIDERS: PCP Internal Medicine Medical Oncology; Visit Provider Surgery | DX: C85.11 Unspecified B-cell lymphoma, lymph nodes of head, face, and neck (principal) | CPT/HCPCS: 99212 ==

== ENCOUNTER → 2022-01-07 07:17 | Outpatient (REF) | payer MEDICARE, OTHER, SELFPAY ==
--- NOTE | 2022-01-07 07:19 | CA_ITS ---
Transthoracic Echocardiogram Patient (Last, First, Middle): Rosmery Aguilar J Gender: Female Date of : 1940 Age: 81 Procedure Date: 01/07/2022 Procedure Type: Transthoracic Echocardiogram Location: OP Height: 149.86 cm Weight: 48.54 kg BSA: 1.41 m2 Heart Rate: bpm BP: 148 / 86 mmHg [employer] [facility] Chief: CELENA Referring MD: Ann Manning MD Symptoms: pre chemo eval Study Quality: Adequate ECG Rhythm: Sinus Conclusions: - The left ventricular systolic function is normal. The calculated ejection fraction is 62% by biplane method. - There is mild tricuspid valve regurgitation. Findings Left Ventricle Normal left ventricular cavity size. There is normal left ventricular wall thickness. The left ventricular systolic function is normal. The calculated ejection fraction is 62% by biplane method. There is no evidence of regional wall motion abnormalities. Diastolic function is normal for age. LVEF by 3D 63%. LV peak GLS -18.6%. Right Ventricle Normal right ventricular cavity size and systolic function. Atria Both atria are normal in size. Aortic Valve There is a normal trileaflet aortic valve. There is no aortic valve stenosis. Trace to mild aortic regurgitation. Mitral Valve The mitral valve appears normal. There is trace mitral valve regurgitation. There is no mitral valve stenosis. Pulmonic Valve The pulmonic valve is likely normal. Tricuspid Valve Normal tricuspid valve structure. There is mild tricuspid valve regurgitation. There is no evidence of pulmonary hypertension. Great Vessels The asc aorta is normal in size. Venous The inferior vena cava is normal in size and collapses greater than 50% with inspiration. Pericardium/Pleural There is no evidence of pericardial effusion. Prior Study Comparison No prior study available for comparison. Measurements 2D Linear Measurements IVSd: 1.09 0.6-0.9/0.6-1.0 cm LVIDd: 3.79 3.9-5.3/4.2-5.9 cm LVIDd Index: 2.69 2.4-3.2/2.2-3.1 cm/m2 LVIDs: 2.56 2.0-3.6 cm LVPWd: 1.03 0.7-1.1 cm LV Mass: 158.06 67-162/88-224 g LV Mass Index: 112.10 43-95/49-115 g/m2 LVOT Diam: 1.90 3.0+(-)1.3 cm 2D Systolic Function EF 4C: 63.00 >55% EF 2C: 58.90 >55% EF BiP: 61.60 >55% Mitral Valve MV Pk E: 0.74 MV PK A: 0.79 MV Decel Time: 236.00 E/A: 0.90 E'Lateral: 5.64 E'Medial: 4.58 E/E' Med: 16.10 E/E' Lat: 13.10 PHT: 69.00 MVA PHT: 3.19 Decel Schoolcraft: 3.13 Aortic Valve AoV Pk Carlito: 1.12 AoV Mn Carlito: 0.82 AoV VTI: 0.27 AoV Pk Grad: 5.00 Aov Mn Grad: 3.00 ZA Cont.VTI: 2.00 AI Pk Carlito: 4.78 AI Schoolcraft: 2.83 LVOT LVOT Pk Carlito: 0.87 LVOT Mn Carlito: 0.62 LVOT VTI: 0.19 LVOT Pk Grad: 3.00 LVOT Mn Grad: 2.00 LVOT Diam: 1.90 LVOT Area: 2.84 Diastolic Function MV Pk E: 0.74 MV Pk A: 0.79 E/A: 0.90 E'Medial: 4.58 E/E' Med: 16.10 E' Laterial: 5.64 E/E' Lat: 13.10 Right Ventricle TAPSE (mm): 23.60 TVS' Carlito: 12.00 Tricuspid Valve TR Pk Carlito: 2.52 TR Pk Grad: 25.00 RA Press: 3.00 RVSP: 28.00 Great Vessels Aorta Sinus of Valsalva: 3.11 2.0-3.[address] [place]: 2.53 1.7-3.4 cm Ao Asc: 3.60 2.1-3.4 cm Updated in Other Vendor System with Status of Final Kaz López MD electronically signed on 01/08/2022 12:15:17 PM with status of Final
== END ==
LOC: HO.CARD 07:17
PROVIDERS: Visit Provider Internal Medicine
DX: C85.90 Non-Hodgkin lymphoma, unspecified, unspecified site (principal)
CPT/HCPCS: 93306; 93356

== ENCOUNTER 2022-01-11 08:54 | Day surgery (SDC) | payer MEDICARE, OTHER, SELFPAY ==
--- NOTE | ~2022-01-11 | IR_ITS ---
PROCEDURE: IR INSERTION OF TUNNEL CATHETER CLINICAL INFORMATION: Lymphoma for chemotherapy. COMPARISON: None TECHNIQUE: Procedure and risks and benefits including bleeding, infection and pneumothorax were discussed with the patient through an interpreter for the deaf and informed consent was obtained. All elements of maximal sterile barrier technique followed including use of cap, mask, sterile gown, sterile gloves, a sterile full body drape and hand hygiene. Also followed skin preparation with 2% chlorhexidine for cutaneous antisepsis, and sterile ultrasound preparation with sterile gel and probe cover when applicable. The right neck and chest were prepped and draped in the usual sterile fashion. The skin and soft tissues were anesthetized with 1% lidocaine plain. Using ultrasound guidance and a 5-[place] micropuncture system, right internal jugular vein access was obtained. Over an 018 wire, a 5-[place] dilator was positioned in the SVC. The skin and soft tissues of the right upper anterior chest were anesthetized with 1% lidocaine. A small incision was made. A subcutaneous pocket was created using blunt dissection. Subcutaneous tunnel from the chest to the neck incision was anesthetized with 1% lidocaine plain. Using a tunneler, a 5.8-[place] single-lumen catheter was tunneled from the chest to the neck incision. The catheter was attached to the port. The port and catheter were flushed. The port was positioned in the subcutaneous pocket and secured using 220 non-absorbable sutures. An 035 guidewire was advanced through the 5-[place] dilator into the IVC. 5-[place] dilator was exchanged for a 6-[place] peel-away sheath. Using bent wire technique, catheter length was estimated and the catheter was cut. Catheter length is 21 cm. Catheter was fed centrally through the peel-away sheath. Catheter tip is at the cavoatrial junction. The neck incision was closed using a 4-0 absorbable subcuticular suture. The chest incision was closed using 430 absorbable interrupted sutures followed by a running 4-0 absorbable subcuticular suture. Real-time ultrasound guidance was used to document vein patency and for needle entry. A formal ultrasound picture was recorded. The patient received Versed 1 mg and fentanyl 50 mcg intravenously during the procedure. Total sedation time was 35 minutes. Real-time ultrasound guidance was used to document vein patency and for needle entry. A formal ultrasound picture was recorded. FLUOROSCOPY TIME: 0.2 minutes. DAP: 11 cGy-cm2. FINDINGS: There is a right internal jugular 5.8-[place] single-lumen Deltec PAS-port T2 Port-A-Cath with tip projecting over the SVC. IR/IR cvc insert tunnel w prt/ceo ziff davis IMPRESSION: Right internal jugular Port-A-Cath placement.
[2022-01-11 09:33] LABS: MANUAL DIFF FLAG NO
[2022-01-11 09:37] LABS: Basophils Absolute Auto 0.1 X10*3/uL (0.0-0.2); Basophils Percent Auto 1.5 % (0-2); Eosinophils Absolute Auto 0.2 X10*3/uL (0.0-0.4); Eosinophils Percent Auto 3.4 % (0-4); Hematocrit 35.9 % (37.0-47.0); Hemoglobin 11.8 g/dl (12.0-16.0); Imm Gran Abs Auto 0.02 X10*3/uL (0.00-0.03); Imm Gran Pct Auto 0.4 % (0.0-0.4); Lymphocytes Absolute Auto 0.7 X10*3/uL (1.2-4.9); Lymphocytes Percent Auto 13.7 % (20-40); Mean Corpuscular HGB Conc 32.9 g/dl (31.0-35.0); Mean Corpuscular Hemoglobin 29.6 pg (27.0-33.0); Mean Corpuscular Volume 90.2 fL (80.0-98.0); Mean Platelet Volume 8.6 fL (9.4-12.3); Monocytes Absolute Auto 0.6 X10*3/uL (0.1-1.2); Monocytes Percent Auto 11.1 % (2-11); Neutrophils Absolute Auto 3.7 x10*3/uL (2.0-8.3); Neutrophils Percent Auto 69.9 % (45-73); Platelet Count 88 X10*3/uL (160-400); Red Blood Count 3.98 X10*6/uL (4.20-5.50); White Blood Count 5.3 X10*3/uL (4.8-10.8)
[2022-01-11 09:40] LABS: Prothrombin Time 11.5 SEC (10.0-13.1)
[2022-01-11 09:43] LABS: Partial Thromboplastin Time 31.4 SEC (26.0-36.4)
[2022-01-11 09:54] LABS: Anion Gap 17 (12-20); Blood Urea Nitrogen 10 mg/dL (9-16); Carbon Dioxide 24 mmol/L (22-29); Chloride 102 mmol/L (96-108); Potassium 4.5 mmol/L (3.3-5.1); Sodium 138 mmol/L (135-145)
[2022-01-11 12:07] VITALS: BMI 20.9
--- NOTE | 2022-01-11 13:42 | HO.RADPN ---
RADIOLOGY Narrative Narrative: RIJ 5.8 fr single lumen Deltec PASPORT portacath placed. Tip at cavoatrial junction.
[2022-01-11 14:00] VITALS: BP 144/76; PULSE 89; RESP 16; TEMP 36.8; O2SAT 96
[2022-01-11 14:15] VITALS: BP 152/82; PULSE 91; RESP 16; O2SAT 97
[2022-01-11 14:30] VITALS: BP 141/73; PULSE 83; RESP 16; O2SAT 97
[2022-01-11 14:45] VITALS: BP 139/74; PULSE 86; RESP 16; O2SAT 98
== END 2022-01-11 15:00 | disposition home or self-care (01) ==
PROVIDERS: PCP Internal Medicine Medical Oncology; Visit Provider Radiology Diagnostic Radiology
DX: Z45.2 Encounter for adjustment and management of vascular access device (principal); C85.90 Non-Hodgkin lymphoma, unspecified, unspecified site; D69.6 Thrombocytopenia, unspecified; R91.1 Solitary pulmonary nodule
CPT/HCPCS: 36415; 36561; 80051; 84520; 85025; 85610; 85730; 99152; 99153; C1769; C1788; J0690; J1642; J2250; J3010

== ENCOUNTER 2022-03-16 12:59 | Outpatient (REF) | payer MEDICARE, OTHER, SELFPAY ==
--- NOTE | ~2022-03-16 | PE_ITS ---
EXAMINATION: Fluorine-18 FDG PET/CT Scan CLINICAL INDICATION: Subsequent treatment management. Hodgkin's lymphoma, restaging. PROCEDURE: 62 minutes following the intravenous administration of 17.7 mCi of fluorine 18 FDG, images from the base of the skull to the mid thighs were obtained using a combined PET/CT scanner with CT scan based attenuation correction. No oral contrast was administered. No intravenous contrast was administered. Transverse, coronal, sagittal, and volume reconstruction projections were obtained. The patient's blood glucose as determined by a finger stick, was 79 mg/dl immediately prior to injection. Total CT exam dose-length product 225.79 mGy-cm * These CT images were obtained using dose optimization techniques as appropriate, variously including the following: Automated exposure control * Adjustment of mA and/or kV according to patient size (this includes techniques or standardized protocols for targeted exams where dose is matched to indication/reason for exam; i.e. extremities or head) * Use of iterative reconstruction technique COMPARISON: Prior PET/CT scans dated 11/11/2021 and 06/26/2014 are available for comparison. FINDINGS: (Slice numbers described in this report are numbered superiorly to inferiorly with slice #1 in the head) NECK AND VISUALIZED HEAD: Intensely FDG avid cervical lymphadenopathy present on the prior 11/11/[address] scan is no longer present. No foci of abnormal FDG activity are now present. The distribution of FDG activity is physiological. There is no cervical lymphadenopathy. THORAX: Osseous lesions are discussed subsequently. FDG avid axillary lymphadenopathy present on the 11/11/2021 study is no longer present. An FDG avid focus posterior to the right sternoclavicular joint on 11/11/2021 study has also resolved. Other than osseous lesions there are no FDG avid foci in the chest. A 0.9 cm pleural-based opacity adjacent to the right anterolateral sixth interspace shows no abnormal FDG activity and is similar or slightly larger than this density on the 11/11/2021 study and this has a thin tail this suggests it is due to rounded atelectasis. No suspicious pulmonary nodules are visualized. There is no pleural or pericardial fluid or pneumothorax. There is no mediastinal, supraclavicular, or axillary lymphadenopathy now present. A right-sided chest port with internal jugular catheter terminating in the superior vena cava is noted. The mediastinal blood pool activity measured in the main stem pulmonary artery shows SUVmax 1.6. ABDOMEN AND PELVIS: An intensely FDG avid left inguinal lymph node is present, showing SUVmax 15.6, slice 193/267. This measures 2.2 x 1.7 cm in largest transverse dimensions on the CT images. This is less intensely FDG avid than on 11/11/2021 when this showed SUVmax 20.5mm it is also slightly smaller in size now measuring 2.8 x 2.1 cm. Intense FDG avid external iliac lymphadenopathy present on the prior study is much less intensely FDG avid on the current study, now showing SUVmax 2.8, slice 192/267 versus SUVmax 10.2 measured in retrospect on the 11/11/2021 study. No additional suspicious foci of abnormal FDG activity are present in the abdomen or pelvis. The liver, gallbladder, spleen, kidneys, adrenal glands and pancreas appear unremarkable. A chronic right sided bladder diverticulum and some calcified uterine fibroids are present, but the pelvic organs are otherwise unremarkable. The liver SUVmax is 2.7, slice 127/267. MUSCULOSKELETAL: There is mild FDG activity associated with a mixed sclerotic and lytic lesion in the medial aspect of the right clavicle which contains a pathological fracture. This is much less intense than activity at this site present on the 11/11/2021 scan which showed SUVmax 13.3, measured in retrospect. . Additional FDG avid lesions in the medial aspect of the left clavicle, multiple ribs, the left anterior iliac crest, the right humeral head in mild FDG avid foci in the mid and upper thoracic spine present on the prior study are no longer present. No new FDG avid osseous lesions are present. VASCULAR: Diffuse vascular calcifications including coronary are noted. PET/PET CT fusion skull to thigh IMPRESSION: 1. There has been a marked metabolic response to therapy. Improving but persistent FDG avid left inguinal lymph node is the most intensely FDG avid persistent finding, and using the 5 point Deauville scale, this lesion would be classified as a Deauville score of 5. 2. The left external iliac lymph nodes and medial right clavicular lesion are both much improved, but still slightly more intense than the liver and would be given a Deauville score of 4. 3. There are many other previously FDG avid foci including cervical and right axillary FDG avid lymphadenopathy and multiple rib lesions that now show no abnormal FDG activity and would be given a Deauville score of 1.
== END 2022-03-16 13:00 | disposition home or self-care (01) ==
LOC: HO.PET 12:59
PROVIDERS: Visit Provider Internal Medicine
DX: Z13.89 Encounter for screening for other disorder (principal)

== ENCOUNTER 2022-04-11 18:52 | Emergency (ER) | payer MEDICARE, OTHER, SELFPAY ==
--- NOTE | ~2022-04-11 | CT_ITS ---
EXAMINATION: CT ABDOMEN AND PELVIS WITH CONTRAST CLINICAL INFORMATION: Abdominal pain. Constipation. Hodgkin's lymphoma. COMPARISON: PET/CT study 08/14/2022, 11/11/2021. CT scan abdomen pelvis 11/18/2020 TECHNIQUE: Multidetector volumetric images were obtained from the superior aspect of the liver through the pubic symphysis following administration 75 mL of Omnipaque 350 intravenous contrast. Sagittal and coronal reformatted images were obtained on the technologist's workstation. Oral contrast: No This CT examination was performed using dose optimization techniques as appropriate, variously including the following: *Automated exposure control *Adjustment of mA and/or kV according to patient size (this includes techniques or standardized protocols for targeted exams where dose is matched to indication/reason for exam; i.e. extremities or head) *Use of iterative reconstruction technique DLP: 397 mGy-cm FINDINGS: LUNG BASES: The visualized lung bases are unremarkable. LIVER, GALLBLADDER, AND BILIARY TREE: Several small hepatic cysts in the liver. No suspicious liver lesion or intrahepatic bile duct dilatation. The gallbladder is unremarkable with no evidence of radiopaque gallstones, gallbladder wall thickening, or obvious pericholecystic inflammatory changes. PANCREAS: Unremarkable. SPLEEN: Unremarkable. ADRENAL GLANDS: Unremarkable. KIDNEYS AND URETERS: The kidneys are normal in size, shape, and attenuation. No hydronephrosis, hydroureter, or calculi seen. No perinephric stranding. BLADDER: Unremarkable. GASTROINTESTINAL TRACT: Large volume of stool in the rectum. Rectum distended. Transverse diameter 7.8 cm. Subtle edema in the perirectal soft tissues suggesting a mild stercoral colitis. Large volume of stool in the remainder the colon is well. No dilatation of the small bowel. Appendix not visualized. Stomach is normal. ABDOMINAL WALL: There is herniation of a portion of the bladder into left inguinal canal. Coronal image series 5. LYMPH NODES: Redemonstration of left inguinal lymph node measuring 1.4 cm transverse. This measured 1.8 cm in the PET/CT study 03/16/2022. Surgical clips in the left groin. No other significant lymphadenopathy. VASCULAR: Atherosclerotic vascular calcifications of aorta. No aneurysm. PELVIC VISCERA: Unremarkable. OSSEOUS STRUCTURES: The mixed osteosclerotic and lytic lesion involving the left iliac crest noted on the PET/CT study of 03/16/2022 not well seen. Stable osteosclerotic lesion of the L5 vertebrae. CT/CT abdomen pelvis w IV con IMPRESSION: Large volume of stool in the rectum. Rectum distended. Subtle edema in the perirectal soft tissues suggesting a mild stercoral colitis. No bowel obstruction. Fleischner guidelines were followed.
--- NOTE | ~2022-04-11 | XR_ITS ---
EXAMINATION: XR ABDOMEN KUB CLINICAL INDICATION: constipation. passing flatus COMPARISON: CT dated 11/18/2020 TECHNIQUE: AP view of the abdomen. FINDINGS: Moderate to large volume of stool in the colon. A large stool ball is present at the rectum. Nondilated bowel gas pattern. No unusual soft tissue calcifications are noted. Left convex lumbar scoliosis with degenerative spondylosis in the lower lumbar spine. Calcific atherosclerosis in the abdominal aorta surgical clips in the left inguinal region. XR/XR KUB IMPRESSION: Moderate to large volume of stool in the colon with a large stool ball at the rectum. No evidence of obstruction.
--- NOTE | 2022-04-11 19:27 | ED.ABDPAIN ---
HPI - Abdominal Pain General Chief Complaint: General Medical Stated Complaint: constipation/ pain in rectum Time Seen by Provider: 04/11/22 21:06 Related Data Home Medications Medication Instructions Recorded Confirmed acetaminophen 325 mg tablet 325 mg PO Q6H PRN Pain 11/30/21 01/20/22 calcium carbonate 600 mg calcium 600 mg PO DAILY 11/30/21 01/20/22 (1,500 mg) tablet cholecalciferol (vitamin D3) 25 25 mcg PO DAILY 11/30/21 01/20/22 mcg (1,000 unit) capsule (Vitamin D3) Previous Rx's Medication Instructions Recorded cyanocobalamin (vitamin B-12) 1,000 mcg PO DAILY #90 tabs 12/24/21 1,000 mcg tablet (Vitamin B-12) ondansetron 8 mg disintegrating 8 mg PO Q8H PRN Nausea #30 tabs 01/12/22 tablet prednisone 50 mg tablet 50 mg PO DAILY #10 tabs 01/12/22 azithromycin 250 mg tablet 250 mg PO DAILY #6 tabs 03/26/22 (Zithromax) Allergies Allergy/AdvReac Type Severity Reaction Status Date / Time shrimp Allergy Intermediate Stomach Verified 04/11/22 19:31 Upset PMFSH Past Medical History Medical History Bronchiectasis Diverticulosis Hernia Internal hemorrhoids Marginal zone lymphoma Non-Hodgkin lymphoma Osteopenia Pulmonary nodule Thrombocytopenia (~2012) Surgical History History of lung surgery History of lymph node biopsy (12/21/21) Family History Family History Father Heart problem Alcoholism CVD (cardiovascular disease) Mother Brother Lung cancer Sister Heart valve replaced Brother Lung cancer Social History Social History Household Members: Spouse and Significant Other Housing: House Alcohol intake: never Patient Tobacco Use Status: Never used Tobacco Second Hand Smoke Exposure: No Advance Directives: No Advance Directives Information Provided: No service: No Current occupational status: retired Physical Exam ED Vital Signs: BMI result Body Mass Index 21.6 Course Course Course Narrative: RME--82yo F w/PMHx Non-Hodgkin lymphoma on chemo, diverticulosis, hernia, thrombocytopenia, c/o constipation x3 days with rectal discomfort. Admits is still passing flatus, has the urge to defecate w/o relief. +chronic urinary frequency. Denies fever, chills, abd pain, N/V Nontoxic appearing Labs, UA, KUB ordered Medical Decision Making Lab Data 04/11/22 19:44 04/11/22 19:44 Labs: Lab Results 04/11/22 04/11/22 04/11/22 Range/Units 19:44 19:44 19:51 WBC 78.6 H* (4.8-10.8) X10*3/uL RBC 3.82 L (4.20-5.50) X10*6/uL Hgb 11.3 L (12.0-16.0) g/dl Hct 34.4 L (37.0-47.0) % MCV 90.1 (80.0-98.0) fL MCH 29.6 (27.0-33.0) pg MCHC 32.8 (31.0-35.0) g/dl RDW 15.1 (11.0-16.0) % Plt Count 143 L D (160-400) X10*3/uL MPV 9.0 L (9.4-12.3) fL Immature Gran % (Auto) Cancelled Neut % (Auto) Cancelled Lymph % (Auto) Cancelled [place] % (Auto) Cancelled Eos % (Auto) Cancelled Baso % (Auto) Cancelled Lymph # (Auto) Cancelled [place] # (Auto) Cancelled Eos # (Auto) Cancelled Baso # (Auto) Cancelled Abs Immat Gran (auto) Cancelled Absolute Neuts (auto) Cancelled Absolute Nucleated RBC 0.000 (0.0-0.012) X10*3/uL Nucleated RBC % (auto) 0.0 (0.0-0.2) /100WBC Neutrophils % (Manual) 91 H (45-73) % Band Neutrophils % 5 (3-5) % Lymphocytes % (Manual) 2 L (20-40) % Monocytes % (Manual) 1 L (2-11) % Metamyelocytes % 1 % Abs Neuts (Manual) 75.5 H (2.0-8.3) X10*3/uL Lymphocytes # (Manual) 1.6 (1.2-4.9) X10*3/uL Monocytes # (Manual) 0.8 (0.1-1.2) X10*3/uL Metamyelocytes # 0.8 X10*3/uL Dohle Bodies PRESENT Platelet Estimate NORMAL (NORMAL) Plt Morphology Comment NORMAL RBC Morphology NORMAL Sodium 140 (135-145) mmol/L Potassium 3.2 L D (3.3-5.1) mmol/L Chloride 101 (96-108) mmol/L Carbon Dioxide 26 (22-29) mmol/L Anion Gap 16 (12-20) BUN 13 (9-16) mg/dL Creatinine 0.64 (0.5-1.4) mg/dL Estim Creat Clear Calc 44.6 Estimated GFR > 60 Random Glucose 91 (60-115) mg/dL Calcium 9.4 (8.4-10.2) mg/dL Magnesium 1.9 (1.6-2.6) mg/dL Total Bilirubin 0.6 (0.0-1.0) mg/dL Direct Bilirubin 0.2 (0.0-0.5) mg/dL AST 18 (5-31) U/L ALT 12 (0-31) U/L Alkaline Phosphatase 258 H (39-117) U/L Total Protein 6.4 L (6.5-8.0) g/dL Albumin 4.3 (3.5-5.0) g/dL Lipase 16 (8-78) U/L Urine Color Yellow Urine Appearance Cloudy Urine pH 8.5 (5.0-9.0) Ur Specific [place] 1.010 (1.005-1.025) Urine Protein Negative (Neg-Trace) mg/dL Urine Glucose (UA) Negative (Negative) mg/dL Urine Ketones Negative (Negative) mg/dL Urine Blood Negative (Negative) Urine Nitrite Negative (Negative) Ur Leukocyte Esterase Trace H (Negative) Urine RBC 0-2 (0-2) /HPF Urine WBC 0-5 (0-5) /HPF Ur Squamous Epith Cells 0-2 (0-2) /HPF Urine Bacteria None Seen (None Seen) Hyaline Casts 0-2 (0-2) /LPF Medications Administered Discontinued Medications Generic Name Dose Route Start Last Admin Trade Name Freq PRN Reason Stop Dose Admin Iohexol 100 ml 02/05/23 22:10 04/11/22 22:10 Iohexol 350 Mg/Ml 100 Ml Infus..Btl IV 04/11/22 22:11 75 ml ONCE ONE Administration Sodium Biphosphate/Sodium Phosphate 133 ml 04/11/22 21:15 04/11/22 22:20 Sodium Phosphate,[place]-Dibasic 133 Ml Enema OK 04/11/22 21:16 133 ml ONCE ONE Administration Discharge Plan Discharge Clinical Impression: Non-Hodgkin lymphoma, Constipation Patient Disposition: Home, Self-Care Instructions: Constipation (ED) Prescriptions: No Action acetaminophen 325 mg Tablet 325 mg PO Q6H PRN (Reason: Pain) calcium carbonate 600 mg calcium (1,500 mg) Tablet 600 mg PO DAILY cholecalciferol (vitamin D3) [Vitamin D3] 25 mcg (1,000 unit) Capsule 25 mcg PO DAILY cyanocobalamin (vitamin B-12) [Vitamin B-12] 1,000 mcg Tablet 1,000 mcg PO DAILY Qty: 90 3RF prednisone 50 mg Tablet 50 mg PO DAILY Qty: 10 3RF Rx Instructions: take from day 1-5 starting with day of chemotherapy, every 3 weeks ondansetron 8 mg Tablet,Disintegrating 8 mg PO Q8H PRN (Reason: Nausea) Qty: 30 2RF azithromycin [Zithromax] 250 mg Tablet 250 mg PO DAILY Qty: 6 0RF Rx Instructions: take 2 tabs day 1 then 1 tab for 4 days Referrals: Reymundo Lanier MD [Primary Care Provider] - Interventions: ED Discharge Assessment Last Done: 04/12/22 00:13 Discharge Date/Time: 04/12/22 00:14
[2022-04-11 19:29] VITALS: BP 158/79; PULSE 109; RESP 16; TEMP 36.3; O2SAT 98; BMI 21.6
[2022-04-11 20:38] LABS: Hematocrit 34.4 % (37.0-47.0); Hemoglobin 11.3 g/dl (12.0-16.0); Mean Corpuscular HGB Conc 32.8 g/dl (31.0-35.0); Mean Corpuscular Hemoglobin 29.6 pg (27.0-33.0); Mean Corpuscular Volume 90.1 fL (80.0-98.0); Platelet Count 143 X10*3/uL (160-400); Red Blood Count 3.82 X10*6/uL (4.20-5.50); Red Cell Distribution Width 15.1 % (11.0-16.0)
[2022-04-11 20:40] LABS: Appearance Urine Cloudy; Color Urine Yellow; Glucose Urine UA Negative (Negative); Leukocyte Esterase Urine Trace (Negative); Nitrite Urine Negative (Negative); PH 8.5 (5.0-9.0); UMIC TRIGGER UACC YES; Urine Blood Negative (Negative); Urine Ketones Negative (Negative); Urine Protein Negative (Neg-Trace)
[2022-04-11 20:45] LABS: Bacteria Urine None Seen (None Seen); Hyaline Casts Urine 0-2 /LPF (0-2); RBC Urine 0-2 /HPF (0-2); Squamous Epithelial Cell Urine 0-2 /HPF (0-2); WBC Urine 0-5 /HPF (0-5)
[2022-04-11 20:47] LABS: WBC ABN SCTR FOR CBC 1
[2022-04-11 20:48] LABS: White Blood Count 78.6 X10*3/uL (4.8-10.8)
[2022-04-11 21:00] LABS: Alanine Aminotransferase 12 U/L (0-31); Albumin Level 4.3 g/dL (3.5-5.0); Alkaline Phosphatase 258 U/L (39-117); Anion Gap 16 (12-20); Aspartate Amino Transferase 18 U/L (5-31); Bilirubin Direct 0.2 mg/dL (0.0-0.5); Bilirubin Total 0.6 mg/dL (0.0-1.0); Blood Urea Nitrogen 13 mg/dL (9-16); Calcium 9.4 mg/dL (8.4-10.2); Carbon Dioxide 26 mmol/L (22-29); Chloride 101 mmol/L (96-108); Creatinine Clr Calc Pharmacy 44.6; Estimated Glomerular Filt Rate > 60; Glucose Random 91 mg/dL (60-115); Lipase 16 U/L (8-78); Magnesium 1.9 mg/dL (1.6-2.6); Potassium 3.2 mmol/L (3.3-5.1); Sodium 140 mmol/L (135-145); Total Protein 6.4 g/dL (6.5-8.0)
--- NOTE | 2022-04-11 21:13 | ED_ITS ---
HPI - General Adult General Chief complaint: General Medical Stated complaint: constipation/ pain in rectum Time Seen by Provider: 04/11/22 21:06 History of Present Illness HPI narrative: Patient is an 82-year-old female with a history of non-Hodgkin's lymphoma presented today with having constipation. Patient is currently undergoing chemotherapy. On steroids. Presented today with abdominal pain as well. The pain is worse in the left lower quadrant. It is dull. She tried to use MiraLax with no results. She is not vomiting. She is not nauseous. Positive decreased appetite. Passing gas. Related Data Home Medications Medication Instructions Recorded Confirmed acetaminophen 325 mg tablet 325 mg PO Q6H PRN Pain 11/30/21 01/20/22 calcium carbonate 600 mg calcium 600 mg PO DAILY 11/30/21 01/20/22 (1,500 mg) tablet cholecalciferol (vitamin D3) 25 25 mcg PO DAILY 11/30/21 01/20/22 mcg (1,000 unit) capsule (Vitamin D3) Previous Rx's Medication Instructions Recorded cyanocobalamin (vitamin B-12) 1,000 mcg PO DAILY #90 tabs 12/24/21 1,000 mcg tablet (Vitamin B-12) ondansetron 8 mg disintegrating 8 mg PO Q8H PRN Nausea #30 tabs 01/12/22 tablet prednisone 50 mg tablet 50 mg PO DAILY #10 tabs 01/12/22 azithromycin 250 mg tablet 250 mg PO DAILY #6 tabs 03/26/22 (Zithromax) Allergies Allergy/AdvReac Type Severity Reaction Status Date / Time shrimp Allergy Intermediate Stomach Verified 04/11/22 19:31 Upset Review of Systems Review of Systems: Positive abdominal pain positive constipation Yes all other systems are reviewed and are negative FOR[facility]LY [facility] Past Medical History Attestation statement: The following information was validated with the patient. Medical History Bronchiectasis Diverticulosis Hernia Internal hemorrhoids Marginal zone lymphoma Non-Hodgkin lymphoma Osteopenia Pulmonary nodule Thrombocytopenia (~2012) Surgical History History of lung surgery History of lymph node biopsy (12/21/21) Family History Family History Father Heart problem Alcoholism CVD (cardiovascular disease) Mother Brother Lung cancer Sister Heart valve replaced Brother Lung cancer Social History Social History Household Members: Spouse and Significant Other Housing: House Alcohol intake: never Patient Tobacco Use Status: Never used Tobacco Second Hand Smoke Exposure: No Advance Directives: No Advance Directives Information Provided: No service: No Current occupational status: retired Physical Exam ED Vital Signs: Vital Signs - 24 hr 04/11/22 19:29 04/11/22 23:34 Temperature 97.3 F 97.6 F Pulse Rate 109 H 99 Respiratory Rate 16 17 Blood Pressure 158/79 H 142/68 H Pulse Oximetry 98 100 Oxygen Delivery Method Room Air Room Air BMI result Body Mass Index 21.6 Appearance: Alert. Oriented X3. No acute distress. Eyes: Pupils equal, round and reactive to light. ENT: Pharynx normal. Neck: Normal inspection. Neck supple. No lymph nodes noted. No crepitus CVS: Normal heart rate and rhythm. Pulses normal. Normal S1 and S2 Respiratory: No respiratory distress. Breath sounds normal. No Wheezing. No rales Abdomen: Soft and nontender. No rigidity. No distention. good BS x4 Skin: Skin warm and dry. Normal skin color. Normal skin turgor. Extremities: No lower extremity edema. Neurovascular intact to all extremities. No Lacerations. No Rash Neuro: Oriented X 3. No motor deficit. No sensory deficit. Moving all extermities. No slurred speech Medications Administered Discontinued Medications Generic Name Dose Route Start Last Admin Trade Name Freq PRN Reason Stop Dose Admin Iohexol 100 ml 04/11/22 22:10 04/11/22 22:10 Iohexol 350 Mg/Ml 100 Ml Infus..Btl IV 04/11/22 22:11 75 ml ONCE ONE Administration Sodium Biphosphate/Sodium Phosphate 133 ml 04/11/22 21:15 04/11/22 22:20 Sodium Phosphate,[place]-Dibasic 133 Ml Enema MA 04/11/22 21:16 133 ml ONCE ONE Administration Medical Decision Making Medical Decision Making MDM Narrative: 82 years old presents today with having constipation. Patient passing gas. No vomiting. No evidence for obstruction. CT scan of the abdomen pelvis was ordered given patient's age. History of non-Hodgkin's lymphoma. Patient is status post chemotherapy on Tuesday. Had nuopogen afterward. Her white count is extremely elevated at approximately 70. Question secondary to results of medications. She was manually disimpacted. With large amount of stool resulting. An enema was given another large bowel movement resulted. Clinically patient felt much improved. CT scan was done prior to the 2 large bowel movements. It did not show any evidence of obstruction abscess perforation. It is consistent with the diagnosis of stool impaction. Patient's case discussed with oncologist. Feel comfortable with discharge. Aware of the elevated white count, felt most likely secondary to Neupogen. Differential Diagnosis Differential Diagnoses: The differential diagnosis associated with the presentation includes Obstruction, abscess, diverticulitis, constipation Consult Healthcare Provider Management of the patient was discussed with: Information Security Engineer Oncology Lab Data MDM Lab Attestation statement: I reviewed the patient's lab results. 04/11/22 19:44 04/11/22 19:44 Labs: Lab Results 04/11/22 04/11/22 04/11/22 Range/Units 19:44 19:44 19:51 WBC 78.6 H* (4.8-10.8) X10*3/uL RBC 3.82 L (4.20-5.50) X10*6/uL Hgb 11.3 L (12.0-16.0) g/dl Hct 34.4 L (37.0-47.0) % MCV 90.1 (80.0-98.0) fL MCH 29.6 (27.0-33.0) pg MCHC 32.8 (31.0-35.0) g/dl RDW 15.1 (11.0-16.0) % Plt Count 143 L D (160-400) X10*3/uL MPV 9.0 L (9.4-12.3) fL Immature Gran % (Auto) Cancelled Neut % (Auto) Cancelled Lymph % (Auto) Cancelled [place] % (Auto) Cancelled Eos % (Auto) Cancelled Baso % (Auto) Cancelled Lymph # (Auto) Cancelled [place] # (Auto) Cancelled Eos # (Auto) Cancelled Baso # (Auto) Cancelled Abs Immat Gran (auto) Cancelled Absolute Neuts (auto) Cancelled Absolute Nucleated RBC 0.000 (0.0-0.012) X10*3/uL Nucleated RBC % (auto) 0.0 (0.0-0.2) /100WBC Neutrophils % (Manual) 91 H (45-73) % Band Neutrophils % 5 (3-5) % Lymphocytes % (Manual) 2 L (20-40) % Monocytes % (Manual) 1 L (2-11) % Metamyelocytes % 1 % Abs Neuts (Manual) 75.5 H (2.0-8.3) X10*3/uL Lymphocytes # (Manual) 1.6 (1.2-4.9) X10*3/uL Monocytes # (Manual) 0.8 (0.1-1.2) X10*3/uL Metamyelocytes # 0.8 X10*3/uL Dohle Bodies PRESENT Platelet Estimate NORMAL (NORMAL) Plt Morphology Comment NORMAL RBC Morphology NORMAL Sodium 140 (135-145) mmol/L Potassium 3.2 L D (3.3-5.1) mmol/L Chloride 101 (96-108) mmol/L Carbon Dioxide 26 (22-29) mmol/L Anion Gap 16 (12-20) BUN 13 (9-16) mg/dL Creatinine 0.64 (0.5-1.4) mg/dL Estim Creat Clear Calc 44.6 Estimated GFR > 60 Random Glucose 91 (60-115) mg/dL Calcium 9.4 (8.4-10.2) mg/dL Magnesium 1.9 (1.6-2.6) mg/dL Total Bilirubin 0.6 (0.0-1.0) mg/dL Direct Bilirubin 0.2 (0.0-0.5) mg/dL AST 18 (5-31) U/L ALT 12 (0-31) U/L Alkaline Phosphatase 258 H (39-117) U/L Total Protein 6.4 L (6.5-8.0) g/dL Albumin 4.3 (3.5-5.0) g/dL Lipase 16 (8-78) U/L Urine Color Yellow Urine Appearance Cloudy Urine pH 8.5 (5.0-9.0) Ur Specific [place] 1.010 (1.005-1.025) Urine Protein Negative (Neg-Trace) mg/dL Urine Glucose (UA) Negative (Negative) mg/dL Urine Ketones Negative (Negative) mg/dL Urine Blood Negative (Negative) Urine Nitrite Negative (Negative) Ur Leukocyte Esterase Trace H (Negative) Urine RBC 0-2 (0-2) /HPF Urine WBC 0-5 (0-5) /HPF Ur Squamous Epith Cells 0-2 (0-2) /HPF Urine Bacteria None Seen (None Seen) Hyaline Casts 0-2 (0-2) /LPF Independent Historian Clinical information obtained from an independent historian. History obtained from or confirmed by: Spouse External Record Review External record reviewed: Inpatient record and Office record Discharge Plan Discharge Clinical Impression: Non-Hodgkin lymphoma, Constipation Patient Disposition: Home, Self-Care Prescriptions: No Action acetaminophen 325 mg Tablet 325 mg PO Q6H PRN (Reason: Pain) calcium carbonate 600 mg calcium (1,500 mg) Tablet 600 mg PO DAILY cholecalciferol (vitamin D3) [Vitamin D3] 25 mcg (1,000 unit) Capsule 25 mcg PO DAILY cyanocobalamin (vitamin B-12) [Vitamin B-12] 1,000 mcg Tablet 1,000 mcg PO DAILY Qty: 90 3RF prednisone 50 mg Tablet 50 mg PO DAILY Qty: 10 3RF Rx Instructions: take from day 1-5 starting with day of chemotherapy, every 3 weeks ondansetron 8 mg Tablet,Disintegrating 8 mg PO Q8H PRN (Reason: Nausea) Qty: 30 2RF azithromycin [Zithromax] 250 mg Tablet 250 mg PO DAILY Qty: 6 0RF Rx Instructions: take 2 tabs day 1 then 1 tab for 4 days Referrals: Reymundo Lanier MD [Primary Care Provider] -
[2022-04-11 21:38] LABS: Band Neutrophils Percent 5 % (3-5); Lymphocytes Absolute Manual 1.6 X10*3/uL (1.2-4.9); Lymphocytes Percent Manual 2 % (20-40); Metamyelocytes Absolute 0.8 X10*3/uL; Metamyelocytes Percent 1 %; Monocytes Absolute Manual 0.8 X10*3/uL (0.1-1.2); Monocytes Percent Manual 1 % (2-11); Neutrophils Absolute Manual 75.5 X10*3/uL (2.0-8.3); Neutrophils Percent Manual 91 % (45-73)
[2022-04-11 21:39] LABS: Platelet Estimate NORMAL (NORMAL); Platelet Morphology Comment NORMAL; RBC Morphology NORMAL
[2022-04-11 21:40] LABS: Dohle Bodies PRESENT
[2022-04-11] MEDS: iohexoL 350 MG/ML 100 ML INFUS..BTL IV (22:10)
[2022-04-11] MEDS: Sodium Phosphate,Mono-Dibasic 133 ML ENEMA PR (22:20)
[2022-04-11 23:34] VITALS: BP 142/68; PULSE 99; RESP 17; TEMP 36.4; O2SAT 100
== END 2022-04-12 00:14 | disposition home or self-care (01) ==
PROVIDERS: Physician Assistant; Emergency Provider Emergency Medicine Emergency Medical Services; PCP Internal Medicine Medical Oncology
DX: C85.90 Non-Hodgkin lymphoma, unspecified, unspecified site (principal); K59.00 Constipation, unspecified; R10.9 Unspecified abdominal pain; Z79.899 Other long term (current) drug therapy
CPT/HCPCS: 36415; 74018; 74177; 80048; 80076; 81001; 83690; 83735; 85007; 85025; 85027; 99283; Q9967

== ENCOUNTER 2022-05-25 09:53 | Outpatient (REF) | payer MEDICARE, OTHER, SELFPAY ==
--- NOTE | ~2022-05-25 | PE_ITS ---
EXAMINATION: Fluorine-18 FDG PET/CT Scan CLINICAL INDICATION: Subsequent treatment management. Large B-cell lymphoma. Restaging. PROCEDURE: 71 minutes following the intravenous administration of 17.3 mCi of fluorine 18 FDG, images from the base of the skull to the mid thighs were obtained using a combined PET/CT scanner with CT scan based attenuation correction. No intravenous contrast was administered. Transverse, coronal, sagittal, and volume reconstruction projections were obtained. The patient's blood glucose as determined by a finger stick, was 80 mg/dl immediately prior to injection. The radiotracer was injected intravenously through left antecubital superficial vein, without any complications. Total CT exam dose-length product 198.34 mGy-cm * These CT images were obtained using dose optimization techniques as appropriate, variously including the following: Automated exposure control * Adjustment of mA and/or kV according to patient size (this includes techniques or standardized protocols for targeted exams where dose is matched to indication/reason for exam; i.e. extremities or head) * Use of iterative reconstruction technique COMPARISON: Most recent prior PET CT study done on 03/16/2022 and the baseline PET/CT study done on 06/26/2014 and most recent prior CT of the abdomen and pelvis done on 04/11/2022. FINDINGS: NECK AND VISUALIZED HEAD: No FDG avid disease, unchanged. THORAX: No FDG avid disease, unchanged. Previously documented pleural-based approximately 1 cm non-FDG avid opacity seen at right middle lobe anterolaterally appear stable since the baseline study dated 06/26/2014. ABDOMEN AND PELVIS: Previously documented, clinically known abnormal enlarged intense FDG avid left inguinal/groin lymph node currently measures 2.5 x 1.7 cm, previously 2.5 x 1.5 cm (on the study dated 03/16/2022), shows SUV max of 20.8 (204/267), previously 15.6. The remainder of the abdomen and pelvis otherwise appear unremarkable, unchanged. The right hemipelvic FDG avidity is consistent with partially distended bladder (extending to the level of the right hemipelvic wall) and not a lymphadenopathy. MUSCULOSKELETAL: Previously documented mild FDG avid pathologically fracture involving the right medial clavicle associated with underlying expansile osteolysis shows interval healing with SUV max of 2.8 (64/267), unchanged since the prior study dated 03/16/2022. VASCULAR: Ascending thoracic aorta measures 3.5 x 3.2 cm. Atherosclerotic calcific disease is present within the aorta and is branches including coronary arteries without aneurysm formation. SUV max OF MEDIASTINAL BLOOD POOL: 2.4 SUV max OF LIVER: 2.8 PET/PET CT fusion skull to thigh IMPRESSION: 1. The index intense FDG avid solitary left inguinal/groin lymph node currently measures 1.7 cm at its maximum short axis dimension (previously 1.5 cm) shows SUV max of 20.8, previously 15.6, minimally increased in size and shows mild interval increase in FDG intensity since the most recent prior study dated 03/16/2022. Deauville score of 5. 2. Persistent stable mild FDG avid healing pathological fracture involving medial end of the right clavicle with SUV max of 2.8, unchanged since the prior study dated 03/16/2022. Deauville score of 3. 3. No new abnormalities. Reference: Deauville Score: Score 1: No uptake above the background Score 2: Uptake ? mediastinum Score 3: Uptake > mediastinum but ? liver Score 4: Uptake moderately increased compared to the liver at any site Score 5: Uptake markedly increased compared to the liver at any site or any new lesion Score X: New areas of uptake unlikely to be related to lymphoma
== END 2022-05-25 09:54 | disposition home or self-care (01) ==
LOC: HO.PET 09:53
PROVIDERS: PCP Internal Medicine Medical Oncology; Visit Provider Internal Medicine
DX: Z13.89 Encounter for screening for other disorder (principal)

== ENCOUNTER → 2022-06-01 14:36 | Outpatient (BNVA) | payer MEDICARE, OTHER, SELFPAY | PROVIDERS: PCP Internal Medicine Medical Oncology; Referring Provider Internal Medicine; Visit Provider Surgery | DX: C85.90 Non-Hodgkin lymphoma, unspecified, unspecified site (principal); R59.0 Localized enlarged lymph nodes | CPT/HCPCS: 99212 ==

== ENCOUNTER 2022-06-09 08:23 | Day surgery (SDC) | payer MEDICARE, OTHER, SELFPAY ==
[2022-06-09 08:42] VITALS: BMI 20.6
[2022-06-09 09:07] VITALS: BP 123/74; PULSE 82; RESP 16; TEMP 36.6; O2SAT 99
[2022-06-09] MEDS: Lactated Ringers 1,000 ML 100 ML IVCONT (09:16)
--- NOTE | 2022-06-09 09:49 | MHC.SHP ---
Pre-Procedural Eval Section A Date of Service: 06/09/22 The patient is an INPATIENT: No Changes since office visit: Yes Patient answered all questions; No Cold of Flu in the past 2 weeks, No New Medical Problems and No Changes in Medication The History & Physical has been completed within 30 days and I have reviewed it.: Yes Section B Chief Complaint: Localized enlarged lymph nodes Allergies: Allergies Allergy/AdvReac Type Severity Reaction Status Date / Time shrimp Allergy Intermediate Stomach Verified 06/01/22 14:47 Upset Plan Diagnosis/Plan: Unchanged I have reviewed the history and physical and performed a pertinent physical examination on my patient. No changes have occurred unless specified. Time Spent With Patient Time: Total time managing care of this patient today ____ minutes.
--- NOTE | 2022-06-09 10:56 | HO.ANESPROP2 ---
[facility] Active Problems Active Problems: All Active Problems (Updated 06/01/22 @ 15:09 by Man Ortega MD) Inguinal lymphadenopathy (Acute) Non-Hodgkin lymphoma (Chronic) Past Medical History Medical History Bronchiectasis Diverticulosis Hernia Internal hemorrhoids Marginal zone lymphoma Non-Hodgkin lymphoma Osteopenia Pulmonary nodule Thrombocytopenia (~2012) Family History Family History Father Heart problem Alcoholism CVD (cardiovascular disease) Mother Brother Lung cancer Sister Heart valve replaced Brother Lung cancer Family history of problems with anesthesia: No Surgical History Surgical History History of lung surgery History of lymph node biopsy (12/21/21) History of Problems with Anesthesia: No Social History Social History Household Members: Spouse and Significant Other Housing: House Alcohol intake: never Patient Tobacco Use Status: Never used Tobacco Second Hand Smoke Exposure: No Use of substances other than those prescribed or required for medical reasons: No Are you DNR?: No Advance Directives: No Advance Directives Information Provided: Yes Recently lost weight without trying: Yes How much weight loss: 2-13 pounds Nutrition Risks: No Nutritional Risk service: No Current occupational status: retired Meds Allergies Allergy/AdvReac Type Severity Reaction Status Date / Time shrimp Allergy Intermediate Stomach Verified 06/01/22 14:47 Upset Active Medications: Current Medications Lactated Ringer's (Lr) 1,000 mls @ 100 mls/hr IVCONT .Q10H NEERAJ Last Admin: 06/09/22 09:16 Dose: 100 mls/hr Home Medications Medication Instructions Recorded Confirmed Last Taken Type acetaminophen 325 mg tablet 325 mg PO Q6H PRN Pain 11/30/21 06/09/22 Unknown History calcium carbonate 600 mg calcium 600 mg PO DAILY 11/30/21 06/09/22 Unknown History (1,500 mg) tablet cholecalciferol (vitamin D3) 25 25 mcg PO DAILY 11/30/21 06/09/22 Unknown History mcg (1,000 unit) capsule (Vitamin D3) docusate sodium 50 mg capsule 50 mg PO DAILY PRN Constipation 05/12/22 06/09/22 Unknown History Exam Exam Date and Time: June 09, 2022 1056 Height,Weight and Vital Signs: Height 4 ft 11 in Weight 46.38 kg Last Vital Signs Temp 97.9 F 06/09/22 09:07 Pulse 82 06/09/22 09:07 Resp 16 06/09/22 09:07 BP 123/74 06/09/22 09:07 Pulse Ox 99 06/09/22 09:07 O2 Del Method Room Air 06/09/22 09:07 Airway Mallampati Class: II TM Dist: >3cm Neck ROM: Limited Loose/Missing/Broken Teeth: No Heart: RRR Lungs: CTA Assessment and Plan Assessment Anesthesia Assessment: Anesthesia Plan Discussed and Chart Reviewed Final Anesthetic Review Family History of Problems with Anesthesia: No History of Problems with Anesthesia: No NPO: Yes ASA Class: II Final Preanesthetic Review: Meds/Allgs Chart Reviewed, Consent Obtained/Reviewed and Anes Risks/Benef Reviewed Patient Risk: Low Procedure Risk: Low Anesthetic Plan Anesthetic Plan: MAC: Disposition: Standard PACU
--- NOTE | 2022-06-09 11:36 | P.OP_ITS ---
Operative Note Operative Note Date of Service: 06/09/22 Narrative: Preoperative diagnosis: Left inguinal lymphadenopathy Postoperative diagnosis: same Procedure: excision left inguinal lymph node Surgeon: Man Ortega MD Cost Accounting Manager: Doris Elise PA-C Anesthesia: mac Indications for procedure: 82-year-old female patient with prior history of non- Hodgkin lymphoma presenting with enlarging lymphadenopathy of the left groin presenting for excision. Operative findings: 2 cm enlarged lymph node left groin Specimen: lymph node left groin Estimated blood loss: less than 1 mL Complications: none Procedure details: patient was brought the OR placed in a supine position. After administering general anesthesia the patient's abdomen was prepped with ChloraPrep and draped in a sterile fashion. A surgical time-out was called the consent confirmed. Patient received preoperative antibiotics and Venodyne boots were in place. Local anesthesia consisting of 0.5% Sensorcaine was infiltrated in the left inguinal region directly over the lymph node. A oblique incision was then created with a scalpel carried out through subcutaneous tissue. Dissection was continued down through fascia a up to the palpable node. Node was then dissected circumferentially using electrocautery and free ties of 3-0 Polysorb to ligate the vessels. Specimen was passed off the table and sent to pathology for further examination. The wounds were then irrigated with saline solution and suctioned dry. Wounds were again checked for hemostasis. Deep fascia was then closed using interrupted 3-0 Polysorb sutures. Dermis was reapproximated using interrupted 3-0 Polysorb sutures. Skin was closed using a running subcuticular 4-0 Polysorb suture. Steri-Strips, 2 x 2 gauze and Tegaderm were then applied. The patient tolerated the procedure well. Sponge, instrument, needle counts reported as correct. The patient was transferred to PACU in stable condition.
[2022-06-09 11:40] VITALS: BP 149/79; PULSE 78; RESP 18; TEMP 36.5; O2SAT 99
[2022-06-09 11:45] VITALS: BP 146/79; PULSE 82; RESP 18; O2SAT 99
[2022-06-09 11:50] VITALS: BP 154/80; PULSE 77; RESP 16; O2SAT 99
[2022-06-09 11:57] VITALS: BP 148/64; PULSE 78; RESP 16; TEMP 36.5; O2SAT 98
== END 2022-06-09 12:50 | disposition home or self-care (01) ==
PROVIDERS: PCP Internal Medicine Medical Oncology; Visit Provider Surgery
PROC: (CPT 38500; principal; 2022-06-09 10:10)
DX: C88.4 Extranodal marginal zone B-cell lymphoma of mucosa-associated lymphoid tissue [MALT-lymphoma] (principal); Z92.21 Personal history of antineoplastic chemotherapy; C85.90 Non-Hodgkin lymphoma, unspecified, unspecified site; J47.9 Bronchiectasis, uncomplicated; M85.80 Other specified disorders of bone density and structure, unspecified site; Z86.711 Personal history of pulmonary embolism; Z79.899 Other long term (current) drug therapy; Z98.890 Other specified postprocedural states
CPT/HCPCS: 38531; 88305; 88341; 88342; 88360; 88365; J0690; J2405; J3010

== ENCOUNTER → 2022-06-17 10:31 | Outpatient (BNVA) | payer MEDICARE, OTHER, SELFPAY | PROVIDERS: PCP Internal Medicine Medical Oncology; Visit Provider Surgery | DX: Z48.89 Encounter for other specified surgical aftercare (principal); Z86.2 Personal history of diseases of the blood and blood-forming organs and certain disorders involving the immune mechanism | CPT/HCPCS: 99212 ==

== ENCOUNTER 2022-08-31 07:00 | Outpatient (REF) | payer MEDICARE, OTHER, SELFPAY | END 2022-08-31 07:01 | disposition home or self-care (01) | LOC: HO.PET 07:00 | PROVIDERS: PCP Internal Medicine Medical Oncology; Visit Provider Internal Medicine | DX: Z13.89 Encounter for screening for other disorder (principal) ==

== ENCOUNTER 2022-09-01 09:04 | Outpatient (REF) | payer MEDICARE, OTHER, SELFPAY | END 2022-09-01 09:05 | disposition home or self-care (01) | LOC: HO.PET 09:04 | PROVIDERS: PCP Internal Medicine Medical Oncology; Visit Provider Internal Medicine | DX: Z13.89 Encounter for screening for other disorder (principal) ==

== ENCOUNTER 2023-01-25 09:14 | Outpatient (REF) | payer MEDICARE, OTHER, SELFPAY ==
--- NOTE | ~2023-01-25 | MM_ITS ---
EXAMINATION: MM SCREENING DIGITAL BREAST TOMOSYNTHESIS, BILATERAL CLINICAL INFORMATION: Screening. Asymptomatic. COMPARISON: Mammography: 01/12/2021, 11/29/2019, 11/09/2018, 09/03/2014 TECHNIQUE: Digital breast tomosynthesis is performed in both the craniocaudal and mediolateral oblique views along with computer-aided detection (CAD). Synthesized 2D images are generated from the tomosynthesis. FINDINGS: There are scattered areas of fibroglandular density (ACR BI-RADS breast composition Category b). There are mild vascular calcifications bilaterally, benign. There are no suspicious masses, suspicious grouped calcifications, or areas of architectural distortion in either breast. The parenchymal pattern is stable from prior exams. MM/MM tomosynthesis screening BI IMPRESSION: No mammographic evidence of malignancy. ASSESSMENT: BI-RADS BI-RADS 2 - Benign Findings RECOMMENDATION: Routine annual mammography screening. 1 year F/U This examination should not preclude the clinical evaluation of a suspicious palpable abnormality. This patient's information was entered into a reminder system with a target due date for their next mammogram.
--- NOTE | ~2023-01-25 | MM_ITS ---
EXAMINATION: BONE DENSITOMETRY CLINICAL INDICATION: Menopause. COMPARISON: Previous BD dated 09/03/2014 and baseline BD dated 07/28/2007. TECHNIQUE: Using a [employer] DXA System (software version: 13.1) manufactured by [employer], dual-energy x-ray absorptiometry was performed of the lumbar spine and left hip. The images are of good technical quality. Summary results are attached. FINDINGS: LEFT FEMUR, NECK: Current: BMD 0.686 g/cm2, Z-score 0.2, T-score -2.5, osteoporosis. Prior: BMD 0.708 g/cm2. Baseline: BMD 0.735 g/cm2. LEFT FEMUR, TOTAL: Current: BMD 0.810 g/cm2, Z-score 1.1, T-score -1.6, osteopenia, 3.2% decrease from previous, 7.6% decrease from baseline (<5% change is not significant). Prior: BMD 0.837 g/cm2. Baseline: BMD 0.877 g/cm2. AP SPINE L1-L2 (excluding L3 and L4): The data of L1-L4 has been changed to exclude the L3 and L4 vertebral bodies, because degenerative sclerosis at these levels may cause overestimation of lumbar spine density. Current: BMD 1.142 g/cm2, Z-score 2.3, T-score -0.2, normal, 0.6% increase from previous, 1.0% decrease from baseline (<5% change is not significant). Prior: BMD 1.135 g/cm2. Baseline: BMD 1.154 g/cm2. IDENTIFIED RISK FACTORS: Early menopause, secondary osteoporosis. HISTORY OF FRACTURE: None listed. MEDICATIONS: Calcium supplements or multivitamin, vitamin D. MM/XR DEXA axial skeleton IMPRESSION: 1. DIAGNOSIS: Osteoporosis based on the lowest T-score value of -2.5 in the femoral neck applying World Health Organization criteria. 2. 10-YEAR FRACTURE RISK PREDICTION, FRAX: According to the guidelines, FRAX calculation should only be performed on patients in the osteopenia bone density category. Therefore, FRAX was not performed on this patient. 3. Treatment Recommendations: NOF guidelines recommend consideration for treatment in postmenopausal women and men age 50 and older presenting with the following: -A hip or vertebral (clinical or morphometric) fracture. -T-score less than or equal to -2.5 at the femoral neck or spine after appropriate evaluation to exclude secondary causes. -Low bone mass at the hip or spine and a 10-year fracture probability by FRAX of greater than or equal to 3% for hip fracture or greater than or equal to 20% for major osteoporotic fracture based on the [place] adapted WHO algorithm. 4. Other Recommendations: All treatment decisions require clinical judgment and consideration of individual patient factors, including patient preferences, comorbidities, previous drug use, risk factors not captured in the FRAX model (e.g. frailty, falls, vitamin D deficiency, increased bone turnover, interval significant decline in bone density) and possible under or overestimation of fracture risk by FRAX. Additional medical evaluation for secondary cause of low bone mineral density may be appropriate. FUTURE SCAN RECOMMENDATION: People with diagnosed cases of osteoporosis or at high risk for fracture should have regular bone mineral density tests. For patients eligible for Medicare, routine testing is allowed once every 2 years. The testing frequency can be increased to one year for patients who have rapidly progressing disease, those who are receiving or discontinuing medical therapy to restore bone mass, or have additional risk factors.
== END 2023-01-25 09:15 | disposition home or self-care (01) ==
LOC: HO.MAMMO 09:14
PROVIDERS: PCP Internal Medicine; Visit Provider Internal Medicine
DX: Z12.31 Encounter for screening mammogram for malignant neoplasm of breast (principal); Z13.820 Encounter for screening for osteoporosis; Z78.0 Asymptomatic menopausal state
CPT/HCPCS: 77063; 77067; 77080

== ENCOUNTER → 2023-01-25 09:45 | Outpatient (BNV) | payer MEDICARE, OTHER, SELFPAY | PROVIDERS: PCP Internal Medicine; Visit Provider Radiology Diagnostic Radiology | DX: Z12.31 Encounter for screening mammogram for malignant neoplasm of breast (principal) | CPT/HCPCS: 77063; 77067 ==

== ENCOUNTER 2023-02-15 07:55 | Outpatient (REF) | payer MEDICARE, OTHER, SELFPAY ==
--- NOTE | ~2023-02-15 | PE_ITS ---
EXAMINATION: FLUORINE-18 FDG PET/CT SCAN CLINICAL INFORMATION: Subsequent treatment management. Non-Hodgkin's lymphoma with rising LDH. Restaging. TECHNIQUE: 54 minutes following the intravenous administration of 18.6 mCi of fluorine 18 FDG, images from the base of skull to mid-thigh were obtained using a combined PET/CT scanner with CT scan based attenuation correction. No intravenous contrast was administered. Transverse, coronal, sagittal, and volume reconstruction projections were obtained. The patient's blood glucose as determined by a finger stick, was 86 mg/dL immediately prior to injection. The radiotracer was injected intravenously through the left antecubital superficial vein, without any complications. Total CT exam dose-length product 379.80 mGy-cm. * These CT images were obtained using dose optimization techniques as appropriate, variously including the following: Automated exposure control * Adjustment of mA and/or kV according to patient size (this includes techniques or standardized protocols for targeted exams where dose is matched to indication/reason for exam; i.e. extremities or head) * Use of iterative reconstruction technique COMPARISON: Most recent prior PET CT study done on 09/01/2022 FINDINGS: SUV max REFERENCE: Blood: 2.0 (current) 2.2 (09/01/2022). Liver: 2.7 (current). 2.5 (09/01/2022). HEAD AND NECK: Interval development of tracer avid subcentimeter left postauricular/cervical level 2 lymph node is noted with SUV max of 4.1 (20/267). Interval development of another subcentimeter intraparotid (cervical level 8) mild tracer avid lymph node is also noted within the left parotid gland with SUV max of 3.7 (/267). There are no other tracer avid cervical lymphadenopathy or mass identified. Specifically, no evidence of any Waldeyer's ring involvement noted, unchanged. CHEST: Ports and Devices: There is a right-sided Port-A-Cath present with its tip seen at the cavoatrial junction, unchanged. Lungs: Stable sub-5 mm non tracer avid lung nodule within the lingular segment of the left upper lobe (132/349). Linear pleural parenchymal opacities at right mid to lower anterolateral lung field appear stable, presumably represent stable pleuroparenchymal scar without any radiotracer avidity. Mild stable emphysematous disease. Pleura: No significant pleural effusion. Lymph Nodes: No tracer-avid mediastinal, hilar or internal mammary or axillary lymphadenopathy. Mediastinum: There is no significant pericardial effusion/thickening. Breasts/Chest Wall: No abnormal radiotracer uptake. ABDOMEN/PELVIS: Liver/Biliary System: No focal tracer-avid liver lesion. The gallbladder appears unremarkable. Pancreas: Normal.No evidence of pancreatic ductal dilatation. Spleen: No abnormal radiotracer uptake. No evidence of splenomegaly. Adrenal Glands: No abnormal radiotracer uptake. Kidneys: No hydronephrosis, hydroureter or renal calculi bilaterally. Bowel: There is no significant bowel dilatation to suggest obstruction. Lymph Nodes: No tracer avid retroperitoneal, mesenteric and/or pelvic lymphadenopathy present. However, previously documented subcentimeter mild tracer avid left inguinal/groin lymph node currently measures approximately 1.3 cm at its maximum short axis dimension and SUV max of 15.3 (215/267), previously 4.1. Interval development of multiple tracer avid right groin abnormally enlarged lymph nodes are also noted with the dominant lymph node measuring approximately 1.1 cm at its maximum short axis dimension and SUV max of 10.9 (226/267). In addition, there is another new ill-defined ellipsoidal soft tissue abnormality identified which measures 1.2 cm at its maximum short axis dimension at superior right groin within the subcutaneous fat plane with SUV max of 4.2 (206/267), may represent evolving inflammatory soft tissue mass versus evolving lymph node. Pelvic Organs: The urinary bladder is underdistended. MUSCULOSKELETAL: Interval development of multifocal tracer avid osseous disease is present, specifically involving the medial end of the left clavicle (SUV max of 12.9-63/267) near the sternoclavicular joints as well as along the lateral end of the left clavicle, manubrium of the sternum (SUV max of 5.9-69/267), acromion process of both scapulae, and tip of the left scapula (SUV max of 3.9-84/267). Note is also made of asymmetric tracer avidity associated with density of sclerosis around the left C4-C5 facet joint. VASCULAR: Calcific atherosclerotic disease of the aorta including carotid and coronary artery calcifications and no evidence of aneurysm. THE SITE(S) OF MOST INTENSE FDG AVIDITY AND SUV MAX: Left groin/inguinal lymph node with SUV max of 15.3 and the right groin dominant lymph node with SUV max of 10.9 and medial end of the left clavicle with SUV max of 12.9. PET/PET CT fusion skull to thigh IMPRESSION: 1. Interval progression of disease in the form of interval development of multifocal osseous disease and tracer avid cervical and right groin lymph nodes and interval increase in size and tracer avidity of previously documented left groin lymph node since the most recent prior study dated 09/01/2022. Deauville score of 5, previously 4. 2. No other significant interval change. Deauville Score: Score 1: No uptake above the background Score 2: Uptake ? mediastinum Score 3: Uptake > mediastinum but ? liver Score 4: Uptake moderately increased compared to the liver at any site Score 5: Uptake markedly increased compared to the liver at any site or any new lesion Score X: New areas of uptake unlikely to be related to lymphoma
== END 2023-02-15 07:56 | disposition home or self-care (01) ==
LOC: HO.PET 07:55
PROVIDERS: PCP Internal Medicine; Visit Provider Internal Medicine
DX: Z13.89 Encounter for screening for other disorder (principal)

== ENCOUNTER 2023-03-06 13:51 | Emergency (ER) | payer MEDICARE, OTHER, SELFPAY ==
--- NOTE | ~2023-03-06 | XR_ITS ---
EXAMINATION: PORTABLE CHEST 1 VIEW CLINICAL INFORMATION: cough. COMPARISON: 02/15/2023 PET/CT scan and 08/15/2021 chest x-ray. TECHNIQUE: Portable frontal view of the chest was obtained. FINDINGS: Lungs well-expanded. Blunting of the right costophrenic angle suggests small layering right effusion. There is focal nodularity along the right hemidiaphragm likely representing small portion of herniated liver when compared to the prior cross-sectional imaging studies. No superimposed focal infiltrate, edema, or pneumothorax. Cardiac and mediastinal silhouettes within normal limits for size. Right-sided CT compatible chest port with the tip near the expected cavoatrial junction. No acute bony abnormalities. XR/XR chest 1V IMPRESSION: Chronic appearing changes as described above. No acute airspace disease. There is focal nodularity along the right hemidiaphragm likely representing an incidental small portion of herniated liver when compared to the prior cross-sectional imaging studies.
--- NOTE | 2023-03-06 13:54 | ED_ITS ---
HPI - Weakness General Chief complaint: Weakness Stated complaint: covid +, Source: patient Mode of arrival: ambulatory Limitations: no limitations History of Present Illness HPI Narrative: 83 yo female with PMH of non-hodgkin's lymphoma not on chemo since april here with c/o testing positive for COVID on Tuesday symptoms started next day she is on Paxlovid. She has not been eating or drinking due to nausea and anorexia. She has no CP/SOB. She feels dizzy when standing. She was not hypoxic or hypotensive with EMS MD Complaint: generalized weakness Onset (ago): day(s) (last night ) Duration: constant Location: generalized Migration: none Severity: moderate Relieving factors: rest Exacerbating factors: movement and exertion Context: recent illness Associated symptoms: loss of appetite and nausea/vomiting Related Data Home Medications Medication Instructions Recorded Confirmed acetaminophen 325 mg tablet 325 mg PO Q6H PRN Pain 11/30/21 02/24/23 cholecalciferol (vitamin D3) 25 25 mcg PO DAILY 11/30/21 02/24/23 mcg (1,000 unit) capsule (Vitamin D3) docusate sodium 50 mg capsule 50 mg PO DAILY PRN Constipation 05/12/22 02/24/23 Previous Rx's Medication Instructions Recorded ondansetron 4 mg disintegrating 4 mg PO Q8H PRN nausea and 03/06/23 tablet vomiting #20 tabs Allergies Allergy/AdvReac Type Severity Reaction Status Date / Time shrimp Allergy Intermediate Stomach Verified 02/24/23 10:00 Upset Review of Systems 2 Review of Systems: Constitutional : No Fever, No Chills, No Fatigue, pos anorexia, pos malaise ENT/Mouth : No sore throat, No Rhinorrhea Eyes: No Eye Pain, No Swelling, No Redness Cardiovascular : No Chest Pain, No SOB, No Dyspnea on Exertion Respiratory : No Cough, No Sputum Gastrointestinal : pos Nausea, No Vomiting, No Diarrhea, No abdominal Pain Genitourinary : No Dysuria, No Urinary Frequency, No Hematuria, Musculoskeletal : No joint pain, No Myalgias, No Joint Swelling Skin : No Skin Lesions, No rash Neuro : No Weakness, No Numbness, pos Dizziness, no Headache Psych : No Anxiety/Panic, No Depression Heme/Lymph: No Bruising, No Bleeding,No Lymphadenopathy Endocrine : No Polyuria, No Polydipsia All other systems reviewed and are negative [facility] Past Medical History Attestation statement: The following information was validated with the patient. Source: old records reviewed Medical History Osteopenia Bronchiectasis Thrombocytopenia (~2012) Internal hemorrhoids Diverticulosis Pulmonary nodule Marginal zone lymphoma Hernia Non-Hodgkin lymphoma Surgical History History of lymph node excision (06/09/22) History of lymph node biopsy (12/21/21) History of lung surgery Family History Family History Father Heart problem Alcoholism CVD (cardiovascular disease) Mother Brother Lung cancer Sister Heart valve replaced Brother Lung cancer Social History Social History Household Members: Spouse and Significant Other Housing: House Alcohol intake: never Patient Tobacco Use Status: Never used Tobacco Second Hand Smoke Exposure: No Advance Directives: No Advance Directives Information Provided: No service: No Current occupational status: retired Physical Exam 2 Vital Signs: Vital Signs: Last Vital Signs Temp 97.9 F 03/06/23 15:32 Pulse 83 03/06/23 15:32 Resp 16 03/06/23 15:32 BP 137/67 03/06/23 15:32 Pulse Ox 96 03/06/23 15:32 O2 Del Method Room Air 03/06/23 15:32 BMI result Body Mass Index 21.8 Appearance: Alert. Oriented X3. No acute distress. Eyes: Pupils equal, round and reactive to light. ENT: Pharynx normal. Neck: Normal inspection. Neck supple. CVS: Normal heart rate and rhythm. Pulses normal. Respiratory: No respiratory distress. Breath sounds normal. Abdomen: Soft and nontender. Skin: Skin warm and dry. Normal skin color. Normal skin turgor. Extremities: No lower extremity edema. No calf ttp Neuro: Oriented X 3. No motor deficit. No sensory deficit. Course Course Course Narrative: pending UA patient and family feel comfortable going home Medications Administered Discontinued Medications Generic Name Dose Route Start Last Admin Trade Name Freq PRN Reason Stop Dose Admin Sodium Chloride 500 mls @ 500 mls/hr 03/06/23 14:15 03/06/23 15:50 Ns IV 03/06/23 15:14 500 mls/hr .Q1H NEERAJ Administration Ondansetron HCl 4 mg 03/06/23 14:04 03/06/23 15:50 Ondansetron Hcl 4 Mg/2 Ml Vial IVPUSH 03/06/23 14:05 Not Given ONCE ONE Medical Decision Making Medical Decision Making [facility] Narrative: 83 yo female with PMH of non hogdkins lymphoma not on chemo here with c/o nause and poor appetite currently on paxlovid after testing positive for COVID on tuesday. She has no CP/SOB. She denies vomiting had some loose stools. She is not hypoxic and looks not toxic. She was mildly dizzy getting up. At this time will need labs, IVF, zofran, EKG - no CP/SOB hypoxia to suggest PNA, VTE, ACS. Differential Diagnosis Differential Diagnoses: The differential diagnosis associated with the presentation includes COVID, dehydration, weakness, FTT Admission/Observation Consideration of admission/observation: Escalation of care including admission/observation considered no hypoxia, labs stable not vomiting, not hypoxic, normal CXR plts at baseline at this time I think she can be managed at home she is already on paxlovid Lab Data [facility] Lab Attestation statement: I reviewed the patient's lab results. 03/06/23 15:05 03/06/23 15:05 Labs: Lab Results 03/06/23 Range/Units 15:05 WBC 5.1 (4.8-10.8) X10*3/uL RBC 4.55 (4.20-5.50) X10*6/uL Hgb 13.6 (12.0-16.0) g/dl Hct 40.0 (37.0-47.0) % MCV 87.9 (80.0-98.0) fL MCH 29.9 (27.0-33.0) pg MCHC 34.0 (31.0-35.0) g/dl RDW 12.4 (11.0-16.0) % Plt Count 78 L D (160-400) X10*3/uL MPV 8.6 L (9.4-12.3) fL Immature Gran % (Auto) 0.2 (0.0-0.4) % Neut % (Auto) 83.6 H (45-73) % Lymph % (Auto) 7.7 L (20-40) % Mclean % (Auto) 8.1 (2-11) % Eos % (Auto) 0.0 (0-4) % Baso % (Auto) 0.4 (0-2) % Lymph # (Auto) 0.4 L (1.2-4.9) X10*3/uL Mclean # (Auto) 0.4 (0.1-1.2) X10*3/uL Eos # (Auto) 0.0 (0.0-0.4) X10*3/uL Baso # (Auto) 0.0 (0.0-0.2) X10*3/uL Abs Immat Gran (auto) 0.01 (0.00-0.03) X10*3/uL Absolute Neuts (auto) 4.2 (2.0-8.3) x10*3/uL Absolute Nucleated RBC 0.000 (0.0-0.012) X10*3/uL Nucleated RBC % (auto) 0.0 (0.0-0.2) /100WBC PT 11.6 (11.1-13.3) SEC INR 1.0 (0.9-1.1) Sodium 135 (135-145) mmol/L Potassium 4.0 D (3.3-5.1) mmol/L Chloride 100 (96-108) mmol/L Carbon Dioxide 24 (22-29) mmol/L Anion Gap 15 (12-20) BUN 10 (9-16) mg/dL Creatinine 0.71 (0.5-1.4) mg/dL Estim Creat Clear Calc 39.4 Estimated GFR > 60 Random Glucose 100 (60-115) mg/dL Calcium 9.1 D (8.4-10.2) mg/dL Magnesium 1.8 (1.6-2.6) mg/dL Total Bilirubin 0.6 (0.0-1.0) mg/dL Direct Bilirubin 0.2 (0.0-0.5) mg/dL AST 19 (5-31) U/L ALT 10 (0-31) U/L Alkaline Phosphatase 78 (39-117) U/L Troponin I High Sens 3.6 (<3.5-17.0) ng/L Total Protein 6.6 (6.5-8.0) g/dL Albumin 4.2 (3.5-5.0) g/dL Lipase 20 (8-78) U/L Independent Interpretation I performed an independent interpretation of an: EKG and Plain X-Ray (normal) Interpretation: Rate: 89 Rhythm: NSR [place]: normal Normal P waves. Normal KRISTEN. Normal QRS complex. ST T wave : normal no RYLAND qTC:457 prior studies: no acute ischemia The study has been interpreted contemporaneously by me. . Independent Historian Clinical information obtained from an independent historian. History obtained from or confirmed by: EMS External Record Review External record reviewed: Inpatient record Discharge Plan Discharge Clinical Impression: COVID-19, Weakness Patient Disposition: Home, Self-Care Instructions: Weakness (ED), COVID-19 (Coronavirus Disease 2019) (ED) Additional Instructions: your xray was normal of your chest. your oxygen levels are normal. you should continue your paxlovid. your platelets are 78 which is good for you. return for chest pain, trouble breathing, worsening symptoms. stay hydrated and rest. Prescriptions: New ondansetron 4 mg tablet,disintegrating 4 mg PO Q8H PRN (Reason: nausea and vomiting) Qty: 20 0RF No Action acetaminophen 325 mg Tablet 325 mg PO Q6H PRN (Reason: Pain) cholecalciferol (vitamin D3) [Vitamin D3] 25 mcg (1,000 unit) Capsule 25 mcg PO DAILY docusate sodium 50 mg Capsule 50 mg PO DAILY PRN (Reason: Constipation)
--- NOTE | 2023-03-06 14:04 | ECG_ITS ---
Test Reason : WEAKNESS Blood Pressure : / mmHG Vent. Rate : 089 BPM Atrial Rate : 089 BPM P-R Int : 150 ms QRS Dur : 070 ms QT Int : 376 ms P-R-T Axes : 061 -05 067 degrees QTc Int : 457 ms Normal sinus rhythm Normal ECG When compared with ECG of 05-JUN-2020 10:41, No significant change was found Referred By: Krista Walter Electronically Signed By:MARLENE ANDRE
[2023-03-06 14:52] VITALS: PULSE 84; RESP 16; TEMP 36.6; O2SAT 98; BMI 21.8
[2023-03-06 15:10] LABS: MANUAL DIFF FLAG NO
[2023-03-06 15:11] LABS: Hemoglobin 13.6 g/dl (12.0-16.0); PLT CLUMP 1; Red Cell Distribution Width 12.4 % (11.0-16.0); SCAN SMEAR FLAG 1
[2023-03-06 15:13] LABS: Basophils Percent Auto 0.4 % (0-2); Imm Gran Abs Auto 0.01 X10*3/uL (0.00-0.03); Imm Gran Pct Auto 0.2 % (0.0-0.4); Lymphocytes Absolute Auto 0.4 X10*3/uL (1.2-4.9); Lymphocytes Percent Auto 7.7 % (20-40); Mean Corpuscular Hemoglobin 29.9 pg (27.0-33.0); Mean Corpuscular Volume 87.9 fL (80.0-98.0); Mean Platelet Volume 8.6 fL (9.4-12.3); Monocytes Absolute Auto 0.4 X10*3/uL (0.1-1.2); Monocytes Percent Auto 8.1 % (2-11); Neutrophils Absolute Auto 4.2 x10*3/uL (2.0-8.3); Neutrophils Percent Auto 83.6 % (45-73); Red Blood Count 4.55 X10*6/uL (4.20-5.50)
[2023-03-06 15:24] LABS: Prothrombin Time 11.6 SEC (11.1-13.3)
[2023-03-06 15:30] LABS: White Blood Count 5.1 X10*3/uL (4.8-10.8)
[2023-03-06 15:31] LABS: Platelet Count 78 X10*3/uL (160-400)
[2023-03-06 15:32] VITALS: BP 137/67; PULSE 83; RESP 16; TEMP 36.6; O2SAT 96
[2023-03-06 15:34] LABS: Alanine Aminotransferase 10 U/L (0-31); Albumin Level 4.2 g/dL (3.5-5.0); Alkaline Phosphatase 78 U/L (39-117); Anion Gap 15 (12-20); Aspartate Amino Transferase 19 U/L (5-31); Bilirubin Direct 0.2 mg/dL (0.0-0.5); Bilirubin Total 0.6 mg/dL (0.0-1.0); Blood Urea Nitrogen 10 mg/dL (9-16); Calcium 9.1 mg/dL (8.4-10.2); Carbon Dioxide 24 mmol/L (22-29); Chloride 100 mmol/L (96-108); Creatinine Clr Calc Pharmacy 39.4; Estimated Glomerular Filt Rate > 60; Glucose Random 100 mg/dL (60-115); Lipase 20 U/L (8-78); Magnesium 1.8 mg/dL (1.6-2.6); Sodium 135 mmol/L (135-145); Total Protein 6.6 g/dL (6.5-8.0)
--- NOTE | 2023-03-06 15:35 | MHC.EDTECH ---
This pct assumed care of pt at 1500 ,vitals taken ,and Patient ekg taken and was read by Provider .
[2023-03-06 15:42] LABS: Troponin-I High Sensitivity 3.6 ng/L (<3.5-17.0)
[2023-03-06] MEDS: 0.9 % Sodium Chloride 500 ML IV (15:50)
[2023-03-06 17:10] LABS: Appearance Urine Clear; Color Urine Yellow; Glucose Urine UA Negative (Negative); Leukocyte Esterase Urine Negative (Negative); Nitrite Urine Negative (Negative); Urine Blood Negative (Negative); Urine Ketones 40 mg/dL (Negative); Urine Protein Negative (Neg-Trace)
== END 2023-03-06 18:15 | disposition home or self-care (01) ==
PROVIDERS: Emergency Provider Emergency Medicine; PCP Internal Medicine Medical Oncology
DX: U07.1 COVID-19 (principal); R53.1 Weakness
CPT/HCPCS: 36415; 71045; 80048; 80076; 81003; 83690; 83735; 84484; 85025; 85610; 93005; 99283; 99285

== ENCOUNTER → 2023-03-06 14:04 | Outpatient (BNV) | payer MEDICARE, OTHER, SELFPAY | PROVIDERS: Emergency Provider Emergency Medicine; PCP Internal Medicine Medical Oncology; Visit Provider Internal Medicine | DX: R53.1 Weakness (principal) | CPT/HCPCS: 93010 ==

== ENCOUNTER 2023-03-23 08:55 | Outpatient (REF) | payer MEDICARE, OTHER, SELFPAY ==
[2023-03-23 09:22] LABS: MANUAL DIFF FLAG NO
[2023-03-23 09:35] LABS: Basophils Absolute Auto 0.1 X10*3/uL (0.0-0.2); Basophils Percent Auto 0.8 % (0-2); Eosinophils Absolute Auto 0.1 X10*3/uL (0.0-0.4); Hematocrit 38.5 % (37.0-47.0); Hemoglobin 12.6 g/dl (12.0-16.0); Imm Gran Abs Auto 0.03 X10*3/uL (0.00-0.03); Imm Gran Pct Auto 0.5 % (0.0-0.4); Lymphocytes Absolute Auto 1.2 X10*3/uL (1.2-4.9); Lymphocytes Percent Auto 19.8 % (20-40); Mean Corpuscular HGB Conc 32.7 g/dl (31.0-35.0); Mean Corpuscular Hemoglobin 29.7 pg (27.0-33.0); Mean Corpuscular Volume 90.8 fL (80.0-98.0); Mean Platelet Volume 9.8 fL (9.4-12.3); Monocytes Absolute Auto 0.5 X10*3/uL (0.1-1.2); Monocytes Percent Auto 8.9 % (2-11); Neutrophils Absolute Auto 4.1 x10*3/uL (2.0-8.3); Platelet Count 54 X10*3/uL (160-400); Red Blood Count 4.24 X10*6/uL (4.20-5.50); Red Cell Distribution Width 12.4 % (11.0-16.0); White Blood Count 6.1 X10*3/uL (4.8-10.8)
[2023-03-23 10:08] LABS: Alanine Aminotransferase 15 U/L (0-31); Alkaline Phosphatase 72 U/L (39-117); Anion Gap 12 (12-20); Aspartate Amino Transferase 20 U/L (5-31); Bilirubin Total 0.4 mg/dL (0.0-1.0); Blood Urea Nitrogen 16 mg/dL (9-16); Calcium 9.9 mg/dL (8.4-10.2); Carbon Dioxide 26 mmol/L (22-29); Chloride 105 mmol/L (96-108); Estimated Glomerular Filt Rate > 60; Glucose Random 88 mg/dL (60-115); Sodium 138 mmol/L (135-145); Total Protein 6.8 g/dL (6.5-8.0)
[2023-03-23 10:09] LABS: Parathyroid Hormone Intact 45.5 pg/mL (8.7-77.1)
== END 2023-03-23 08:56 | disposition home or self-care (01) ==
LOC: HO.LAB 08:55
PROVIDERS: PCP Internal Medicine Medical Oncology; Visit Provider Internal Medicine Medical Oncology
DX: D69.6 Thrombocytopenia, unspecified (principal); D72.819 Decreased white blood cell count, unspecified; C85.80 Other specified types of non-Hodgkin lymphoma, unspecified site
CPT/HCPCS: 36415; 80053; 83970; 85025

== ENCOUNTER 2023-03-25 09:55 | Day surgery (SDC) | payer MEDICARE, OTHER, SELFPAY ==
--- NOTE | ~2023-03-25 | US_ITS ---
CLINICAL HISTORY: History of non-Hodgkin's lymphoma COMPARISON: PET/CT 02/15/2023. PROCEDURES: 1. Limited preprocedure ultrasound of the left groin. Permanent images saved in PACS. 2. Total of 6 core biopsies of the left inguinal lymph node. 3. Limited post procedure ultrasound of the left groin. Permanent images taken PACS. CLINICIANS: Marlon Bobo PA-C Preprocedural imaging reviewed with Dr. Murphy MEDICATIONS: -Lidocaine 1% 10 mL SQ -Antibiotics: None -For additional details, please see nursing flowsheet. COMPLICATIONS: None ESTIMATED BLOOD LOSS: < 5 ml CONTRAST: None SPECIMENS: Total of 6 x 18 gauge core biopsies of the left inguinal lymph node PROCEDURE NOTE: The procedure, risks, benefits, and alternatives were carefully explained to the patient and written informed consent was obtained. The patient was placed supine on the ultrasound table. A timeout was performed. A limited ultrasound of the left groin was performed to localize the left inguinal lymphadenopathy and choose appropriate needle entry and trajectory. The patient was prepped and draped in usual sterile fashion. The skin and subcutaneous tissues were anesthetized with lidocaine. Under ultrasound guidance, a trocar was advanced to the lesion. An 18-gauge core biopsy device was inserted through the double wall needle, with the needle tip advanced into the lesion. Position was confirmed with ultrasound evaluation. A total of 6 core biopsies were obtained. 2 Gelfoam torpedoes were inserted through the trocar needle and positioned in the biopsy tract and at the level of the capsule. The needle was then removed. A post procedure ultrasound was then obtained. The specimens were sent for pathology and flow cytometry The patient was stable after the procedure and was transferred to the post anesthesia care unit. US/US biopsy lymph node IMPRESSION: Ultrasound-guided biopsy of a PET avid left inguinal lymph node. This procedure was performed by Marlon Bobo PA-C and supervised by Dr. Murphy.
--- NOTE | ~2023-03-25 | CT_ITS ---
History of non-Hodgkin's lymphoma. PET avid left clavicular head. Oncology requests a biopsy. COMPARISON: PET/CT 02/15/2023. PROCEDURES: 1. Limited preprocedure CT of the chest. Permanent images saved in PACS. 2. CT-guided biopsy of the left clavicular head CLINICIANS: Marlon Bobo PA-C Preprocedural imaging reviewed with Dr. Murphy. MEDICATIONS: -Fentanyl 25 mcg, and lidocaine 1% 10 mL SQ -Antibiotics: None -For additional details, please see nursing flowsheet. COMPLICATIONS: None ESTIMATED BLOOD LOSS: < 5 ml CONTRAST: None SPECIMENS: 13 g core placed in formalin and RPMI PROCEDURE NOTE: The procedure, risks, benefits, and alternatives were carefully explained to the patient and written informed consent was obtained. The patient was placed supine on the CT table. A timeout was performed. A limited CT of the chest was performed to localize left clavicular head and choose appropriate needle entry and trajectory. The patient was prepped and draped in usual sterile fashion. The skin, subcutaneous tissues, and periosteum were anesthetized with lidocaine. Under CT guidance, an 11-gauge bone biopsy trocar needle was advanced into the left clavicular head. A 13 gauge core was then performed and placed in formalin and RPMI. An aspiration was also performed from the marrow and sent for analysis. The needle was removed. A dry dressing was applied and secured with Tegaderm. There were no immediate postprocedural complications. The patient was stable after the procedure and was transferred to the post anesthesia care unit. The procedure was done with a dedicated nurse for monitoring of vital signs. CT/CT biopsy bone deep IMPRESSION: CT-guided bone biopsy of the PET avid left clavicular head. This procedure was performed by Marlon Bobo PA-C and supervised by Dr. Murphy.
[2023-03-25 10:36] VITALS: BMI 20.9
[2023-03-25 11:03] VITALS: BP 127/87; PULSE 92; RESP 16; TEMP 36.9; O2SAT 98
[2023-03-25 12:40] VITALS: BP 144/87; PULSE 78; RESP 14; TEMP 36.4; O2SAT 95
[2023-03-25 12:55] VITALS: BP 148/80; PULSE 80; RESP 15; TEMP 36.4; O2SAT 95
== END 2023-03-25 13:58 | disposition home or self-care (01) ==
PROVIDERS: Physician Assistant Surgical; PCP Internal Medicine Medical Oncology; Visit Provider Internal Medicine
DX: C85.15 Unspecified B-cell lymphoma, lymph nodes of inguinal region and lower limb (principal); D69.6 Thrombocytopenia, unspecified; R91.1 Solitary pulmonary nodule; M85.80 Other specified disorders of bone density and structure, unspecified site
CPT/HCPCS: 20225; 36415; 38505; 76942; 77012; 88184; 88185; 88300; 88305; 88341; 88342; 88360; 88374; 88377; J2310; J3010

== ENCOUNTER → 2023-03-25 11:03 | Outpatient (BNV) | payer MEDICARE, OTHER, SELFPAY | PROVIDERS: PCP Internal Medicine Medical Oncology; Visit Provider Radiology Diagnostic Radiology | DX: C85.90 Non-Hodgkin lymphoma, unspecified, unspecified site (principal) | CPT/HCPCS: 20225; 77012 ==

== ENCOUNTER → 2023-06-15 08:26 | Outpatient (BNV) | payer MEDICARE, OTHER, SELFPAY | PROVIDERS: PCP Internal Medicine Medical Oncology; Referring Provider Internal Medicine Medical Oncology; Visit Provider Internal Medicine Cardiovascular Disease | DX: R94.31 Abnormal electrocardiogram [ECG] [EKG] (principal) | CPT/HCPCS: 93010 ==

== ENCOUNTER 2023-07-12 08:57 | Outpatient (AMB) | payer MEDICARE, OTHER, SELFPAY ==
--- NOTE | 2023-07-12 09:03 | MHC.OFFVIS ---
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 This concerned as she is currently on Brukinsa a tyrosine kinase inhibitor for her non Hodgkin's lymphoma. Patient says she has been doing well. EKG was done in June which was read as possible septal infarct which was concerning. Patient is referred here for urgent evaluation. She comes in here today and says she is very active and functional. She has no cardiac symptoms. Denies any chest pain, shortness of breath, palpitations, lightheadedness, syncope. She remains active and does her all activities of daily living without any restriction. [facility] Medical History Osteopenia Bronchiectasis Thrombocytopenia (~2012) Internal hemorrhoids Diverticulosis Pulmonary nodule Marginal zone lymphoma Hernia Non-Hodgkin lymphoma Surgical History History of lymph node excision (06/09/22) History of lymph node biopsy (12/21/21) History of lung surgery Family History Father Heart problem Alcoholism CVD (cardiovascular disease) Mother Brother Lung cancer Sister Heart valve replaced Brother Lung cancer Social History Household Members: Spouse and Significant Other Housing: House Alcohol intake: never Patient Tobacco Use Status: Never used Tobacco Second Hand Smoke Exposure: No service: No Current occupational status: retired Review of Systems Const Denies chills, Denies daytime sleepiness, Denies fatigue, Denies fever(s), Denies frequent falls, Denies poor appetite, Denies snoring, Denies stops breathing during sleep, Denies weakness, Denies weight gain and Denies weight loss Eyes Denies loss of vision ENT Denies dizziness and Denies hearing loss Card Denies chest pain, Denies claudication, Denies leg edema, Denies lightheadedness, Denies palpitations, Denies dyspnea, Denies dyspnea on exertion and Denies orthopnea Resp Denies cough, Denies excessive phlegm production, Denies dyspnea, Denies dyspnea on exertion, Denies snoring and Denies wheezing GI Denies abdominal pain, Denies hematochezia, Denies change in bowel habits, Denies nausea and Denies vomiting Denies urinary frequency and Denies dysuria Musc Denies arthralgias, Denies muscle weakness, Denies numbness and Denies other (frequent falls) Skin/Breast Denies nail changes and Denies rash Neuro Denies Abnormal speech present, Denies dizziness, Denies frequent falls, Denies loss of vision, Denies memory loss, Denies numbness and Denies weakness Psych Denies depression and Denies memory loss Endo Denies fatigue and Denies palpitations Eligio/Lymph Reports easy bruising and Reports other (anemia) Aller/Immun Denies wheezing Physical Exam Vital Signs: Last Vital Signs Pulse 69 07/12/23 09:04 BP 132/84 07/12/23 09:04 BMI result Body Mass Index 21.1 Const General: cooperative, comfortable, no acute distress, well developed, alert, awake, Physically active and well groomed Nutritional Appearance: thin Orientation/consciousness: patient oriented x3 Limitations: no limitations HEENT Head: Yes normocephalic and Yes atraumatic Neck Neck: Yes trachea midline, Yes supple and Yes no JVD Chest Chest palpation & inspection: normal inspection of the chest Resp Effort & Inspection: normal respiratory effort Auscultation: clear to auscultation bilaterally Cardio Jugular venous distension: no JVD Palpation: normal PMI Rate: regular rate Rhythm: regular rhythm Heart sounds: S1 normal heart sound present, S2 normal heart sound present, no click, no gallops, no murmurs and no rubs GI Auscultation: normal bowel sounds Skin General skin exam: no rashes or lesions noted Neuro General: patient oriented x3 and no focal motor deficits Speech: No Abnormal speech present Extrem General: Yes no clubbing, cyanosis or edema Office Procedures EKG Details: EKG shows normal sinus rhythm with normal EKG [id number], Complete Assessment & Plan Assessment & Plan (1) Abnormal EKG: Code(s): R94.31 - Abnormal electrocardiogram [ECG] [EKG] Plan: Patient referred here for questionable abnormal EKG. That showed septal infarct pattern although could be due to lead misplacement as EKG today shows normal EKG. Patient has no cardiac symptoms and no symptoms suggestive of arrhythmia. Patient is on a TK inhibitor which can potentially cause cardiac arrhythmias. Would suggest an echocardiogram to assess for any regional wall motion abnormality and or LV systolic dysfunction. If not no further workup is indicated from cardiac perspective unless she develops cardiac symptoms. This was discussed with her. Continue to maintain heart healthy lifestyle. Will follow up in the clinic if need be. Coding Level of Care Code New Pt Level 3 (72041) Diagnoses Abnormal EKG R94.31 CPT Codes EKG - CPT: 39123-[id number], Complete ([id number])
[2023-07-12 09:04] VITALS: BP 132/84; PULSE 69; BMI 21.1
== END 2023-07-12 09:24 | disposition home or self-care (01) ==
PROVIDERS: PCP Internal Medicine Medical Oncology; Visit Provider Internal Medicine Cardiovascular Disease
DX: R94.31 Abnormal electrocardiogram [ECG] [EKG] (principal)
CPT/HCPCS: 93010; 99213

== ENCOUNTER → 2023-07-12 08:57 | Outpatient (BNVA) | payer MEDICARE, OTHER, SELFPAY | PROVIDERS: PCP Internal Medicine Medical Oncology; Visit Provider Internal Medicine Cardiovascular Disease | DX: R94.31 Abnormal electrocardiogram [ECG] [EKG] (principal) | CPT/HCPCS: 93005; 99212 ==

== ENCOUNTER → 2023-07-28 12:57 | Outpatient (REF) | payer MEDICARE, OTHER, SELFPAY ==
--- NOTE | 2023-07-28 12:59 | CA_ITS ---
Transthoracic Echocardiogram Patient (Last, First, Middle): Rosmery Aguilar J Gender: Female Date of : 1940 Age: 83 Procedure Date: 07/28/2023 Procedure Type: Transthoracic Echocardiogram Location: OP Height: 152.4 cm Weight: 48.99 kg BSA: 1.44 m2 Heart Rate: bpm BP: 126 / 68 mmHg Library Director: TO Referring MD: Stefan Antunez MD Symptoms: R94.31 - Abnormal electrocardiogram [ECG] [EKG] Study Quality: Fair Conclusions: - The visually estimated ejection fraction is between 55-60%. - E/E prime ratio is between 8 and 15 consistent with indeterminate filling pressures. - Normal right ventricular cavity size and systolic function. Findings Left Ventricle Normal left ventricular size, thickness, systolic function, and wall motion. The visually estimated ejection fraction is between 55-60%. Abnormal diastolic function is noted. Spectral Doppler is indicative of an impaired relaxation filling pattern. E/E prime ratio is between 8 and 15 consistent with indeterminate filling pressures. Right Ventricle Normal right ventricular cavity size and systolic function. Atria The left atrium is normal in size. The right atrium is normal in size. Aortic Valve There is a normal trileaflet aortic valve. There is mild calcification of the aortic valve. There is no aortic valve stenosis. There is trace (trivial) aortic valve regurgitation. Mitral Valve The mitral valve appears normal. There is trace mitral valve regurgitation. There is no mitral valve stenosis. Pulmonic Valve The pulmonic valve is likely normal. Tricuspid Valve Normal tricuspid valve structure. There is trace tricuspid valve regurgitation. Normal right atrial pressure. There is no evidence of pulmonary hypertension. Great Vessels All visible segments of the aorta are normal in size. Venous The inferior vena cava is normal in size and collapses greater than 50% with inspiration. Pericardium/Pleural There is no evidence of pericardial effusion. Prior Study Comparison No significant change compared to prior study dated: 01/07/2022. Measurements 2D Linear Measurements IVSd: 1.07 0.6-0.9/0.6-1.0 cm LVIDd: 3.75 3.9-5.3/4.2-5.9 cm LVIDd Index: 2.60 2.4-3.2/2.2-3.1 cm/m2 LVIDs: 2.64 2.0-3.6 cm LVPWd: 0.73 0.7-1.1 cm LA Diam: 2.70 2.7-3.8/3.0-4.0 cm LAIDs Index: 1.88 1.5-2.3 cm/m2 LV Mass: 123.14 67-162/88-224 g LV Mass Index: 85.51 43-95/49-115 g/m2 LVOT Diam: 2.10 3.0+(-)1.3 cm 2D Systolic Function EF 4C: 58.20 >55% EF 2C: 58.60 >55% EF BiP: 57.80 >55% Mitral Valve MV Pk E: 0.52 MV PK A: 0.68 MV Decel Time: 146.00 E/A: 0.80 E'Lateral: 6.20 E'Medial: 4.90 E/E' Med: 10.70 E/E' Lat: 8.40 PHT: 43.00 MVA PHT: 5.12 Decel [place]: 3.57 Aortic Valve AoV Pk Carlito: 1.14 AoV Mn Carlito: 0.78 AoV VTI: 0.25 AoV Pk Grad: 5.00 Aov Mn Grad: 3.00 ZA Cont.VTI: 1.98 LVOT LVOT Pk [place]: 0.76 LVOT Mn [place]: 0.53 LVOT VTI: 0.14 LVOT Pk Grad: 2.00 LVOT Mn Grad: 1.00 LVOT Diam: 2.10 LVOT Area: 3.46 Diastolic Function MV Pk E: 0.52 MV Pk A: 0.68 E/A: 0.80 E'Medial: 4.90 E/E' Med: 10.70 E' Laterial: 6.20 E/E' Lat: 8.40 Right Ventricle TAPSE (mm): 23.60 TVS' Carlito: 12.00 Tricuspid Valve TR Pk [place]: 2.17 TR Pk Grad: 19.00 RA Press: 3.00 RVSP: 22.00 Great Vessels Aorta Sinus of Valsalva: 3.30 2.0-3.5 cm Ao Asc: 3.30 2.1-3.4 cm Updated in Other Vendor System with Status of Final Laz Eng MD electronically signed on 08/01/2023 4:37:33 PM with status of Final
== END ==
LOC: HO.CARD 12:57
PROVIDERS: PCP Internal Medicine Medical Oncology; Visit Provider Internal Medicine Cardiovascular Disease
DX: R94.31 Abnormal electrocardiogram [ECG] [EKG] (principal)
CPT/HCPCS: 93306

== ENCOUNTER → 2023-07-28 12:59 | Outpatient (BNV) | payer MEDICARE, OTHER, SELFPAY | PROVIDERS: PCP Internal Medicine Medical Oncology; Visit Provider Internal Medicine Cardiovascular Disease | DX: R94.31 Abnormal electrocardiogram [ECG] [EKG] (principal); R93.1 Abnormal findings on diagnostic imaging of heart and coronary circulation | CPT/HCPCS: 93306 ==

== ENCOUNTER 2023-10-31 13:47 | Outpatient (AMB) | payer MEDICARE, OTHER, SELFPAY ==
--- NOTE | 2023-10-31 13:54 | MHC.OFFVIS ---
Vital Signs 10/31/23 13:55 Height 5 ft Weight 105 lb 6.095 oz BMI 20.6 BP 132/68 Blood Pressure Location Lt brachial Position Sitting Pulse 91 Pulse Source Pulse Oximeter Intake Visit Reasons: [facility]-F/up-NS pt Coater Slate Required: No Field Advisor: Field Advisor Present Allergies shrimp Allergy (Intermediate, Verified 10/31/23 13:59) Stomach Upset Medication List - Last Reconciled 10/31/23 by Crista Wright NP-C acetaminophen 325 mg PO Q6H PRN cholecalciferol (vitamin D3) (Vitamin D3) 25 mcg PO DAILY zanubrutinib (Brukinsa) 160 mg (2 x 80 mg) PO BID HPI HPI [facility]/up-NS pt: Details: Rosmery is an 83-year-old female with past medical history of non-Hodgkin's lymphoma, abnormal finding on EKG who recently had a syncopal event and now presents for follow-up. Today she reports that she had an episode a week and a half ago when she felt lightheaded and weak then had loss of consciousness. Her daughter is present and describes that her mother had come into her home and said she was feeling unwell. She went and sat down on the toilet and then proceeded to have syncope. Her daughter who was a nurse checked her pulse and did not feel one. She did perform CPR which resulted in a fractured rib. Patient did have return of consciousness and was evaluated at [facility] and discharged later that day. She has had some soreness with deep inspiration since that time, likely related to her rib fracture. She has no other chest discomfort, no shortness of breath, PND, orthopnea or edema. She has a newer palpable mass to her right upper chest near her clavicle which they relate to her lymphoma. She has follow-up with oncologist planned. She has not had any lightheadedness, presyncope, recurrent syncope, falls since her initial episode. She tells me she is normally quite active and volunteers at the [employer] and [employer]. , daughter present. [facility] Medical History Osteopenia Bronchiectasis Thrombocytopenia (~2012) Internal hemorrhoids Diverticulosis Pulmonary nodule Marginal zone lymphoma Hernia Non-Hodgkin lymphoma Surgical History History of lymph node excision (06/09/22) History of lymph node biopsy (12/21/21) History of lung surgery Family History Father Heart problem Alcoholism CVD (cardiovascular disease) Mother Brother Lung cancer Sister Heart valve replaced Brother Lung cancer Social History Household Members: Spouse and Significant Other Housing: House Alcohol intake: never Patient Tobacco Use Status: Never used Tobacco Second Hand Smoke Exposure: No service: No Current occupational status: retired Review of Systems Const All systems reviewed & are unremarkable except as noted in HPI and below ENT Denies dizziness Card Denies chest pain, Denies chest pain at rest, Denies chest pain with activity, Denies rapid heart rate, Denies pedal edema, Denies edema, Denies leg edema, Denies lightheadedness, Denies palpitations, Denies dyspnea, Denies dyspnea on exertion and Denies orthopnea Resp Denies cough, Denies dyspnea and Denies dyspnea on exertion GI Denies hematochezia and Denies change in stool character Musc Denies abnormal gait, Denies limited range of motion, Denies muscle cramps, Denies muscle weakness, Denies numbness, Denies radiating pain into limb, Denies stiffness and Denies tingling Neuro Denies abnormal gait, Denies dizziness, Denies numbness and Denies tingling Endo Denies palpitations Physical Exam Vital Signs: Last Vital Signs Pulse 91 10/31/23 13:55 BP 108/62 10/31/23 13:55 BMI result Body Mass Index 20.6 Const General: cooperative, comfortable and no acute distress Orientation/consciousness: patient oriented x3 Neck Neck: Yes normal visual inspection and Yes no JVD Resp Effort & Inspection: normal respiratory effort Auscultation: clear to auscultation bilaterally, no rales, no rhonchi and no wheezes Cardio Jugular venous distension: no JVD Rate: regular rate Rhythm: regular rhythm Heart sounds: S1 normal heart sound present, S2 normal heart sound present, no murmurs and no rubs Neuro General: patient oriented x3 Extrem General: Yes normal to inspection, No no pedal edema and No calf tenderness Psych Appearance: grossly normal Mental Status: mental status grossly normal Speech and movement: Normal speech and movement present Assessment & Plan Assessment & Plan (1) Syncope: Code(s): R55 - Syncope and collapse Category: Medical Plan: Episode of loss of consciousness on 10/24/2023. She was feeling unwell went into her daughter's house, sat down then had loss of consciousness. According to daughter she had no pulse and she did CPR. Patient did have return of consciousness after to CPR cycles. EMS transported her to [facility] where cardiac evaluation showed normal troponins, normal EKG, echocardiogram with normal EF and no obvious wall motion abnormalities. She was thought to have had orthostatic hypotension and was given IV fluids. Since that time she has not had any recurrent syncopal events. She has increased her fluid intake. Her blood pressure is normal range today. She is not orthostatic on my examination. Reviewed the need for good hydration. Use caution when going sitting to standing. If she becomes lightheaded she is to sit or lay down. For completeness will check a Holter monitor to assess for any cardiac arrhythmia. She is agreeable to this plan. (2) Abnormal EKG: Code(s): R94.31 - Abnormal electrocardiogram [ECG] [EKG] Category: Medical Plan: EKGs have shown septal Q-wave suggesting possible prior infarct. An echocardiogram had been done at [facility] on 07/28/2023 showing EF 55-60%, no regional wall motion abnormality. No reports of anginal sounding symptoms. No known history of prior [place]. EKG abnormality can be related to lead placement or be nonspecific finding. (3) Non-Hodgkin lymphoma: Code(s): C85.90 - Non-Hodgkin lymphoma, unspecified, unspecified site Category: Medical Plan: Follows with oncology. (4) Hospital discharge follow-up: Code(s): Z09 - Encounter for follow-up examination after completed treatment for conditions other than malignant neoplasm Category: Medical Plan: As above Plan Time spent on chart review, documentation, interview and assessment Orders: Orders ECG 3 day holter monitor Today R55 - Syncope and collapse Coding Level of Care Code Est Pt Level 4 (14045) Diagnoses Syncope R55 Abnormal EKG R94.31 Non-Hodgkin lymphoma C85.90 Hospital discharge follow-up Z09 Time Spent (min) 28
[2023-10-31 13:55] VITALS: BP 132/68; PULSE 91; BMI 20.6
== END 2023-10-31 14:35 | disposition home or self-care (01) ==
PROVIDERS: PCP Internal Medicine Medical Oncology; Visit Provider Nurse Practitioner Family
DX: R55 Syncope and collapse (principal); R94.31 Abnormal electrocardiogram [ECG] [EKG]; C85.90 Non-Hodgkin lymphoma, unspecified, unspecified site; Z09 Encounter for follow-up examination after completed treatment for conditions other than malignant neoplasm
CPT/HCPCS: 99214

== ENCOUNTER → 2023-10-31 13:47 | Outpatient (BNVA) | payer MEDICARE, OTHER, SELFPAY | PROVIDERS: PCP Internal Medicine Medical Oncology; Visit Provider Nurse Practitioner Family | DX: Z09 Encounter for follow-up examination after completed treatment for conditions other than malignant neoplasm (principal); R55 Syncope and collapse; C85.90 Non-Hodgkin lymphoma, unspecified, unspecified site; R94.31 Abnormal electrocardiogram [ECG] [EKG] | CPT/HCPCS: 99212 ==

== ENCOUNTER 2023-11-21 07:51 | Outpatient (REF) | payer MEDICARE, OTHER, SELFPAY ==
--- NOTE | ~2023-11-21 | PE_ITS ---
EXAMINATION: Fluorine-18 FDG PET/CT Scan CLINICAL INDICATION: Subsequent treatment management. Non-Hodgkin's lymphoma. PROCEDURE: 63 minutes following the intravenous administration of 15.6 mCi of fluorine 18 FDG, images from the base of the skull to the mid thighs were obtained using a combined PET/CT scanner with CT scan based attenuation correction. No oral contrast was administered. No intravenous contrast was administered. Transverse, coronal, sagittal, and volume reconstruction projections were obtained. The patient's blood glucose as determined by a finger stick, was 78 mg/dl immediately prior to injection. Total CT exam dose-length product 338.18 mGy-cm * These CT images were obtained using dose optimization techniques as appropriate, variously including the following: Automated exposure control * Adjustment of mA and/or kV according to patient size (this includes techniques or standardized protocols for targeted exams where dose is matched to indication/reason for exam; i.e. extremities or head) * Use of iterative reconstruction technique COMPARISON: Multiple prior FDG PET/CT scans are available for comparison, the most recent dated 02/15/2023 and the baseline dated 06/26/2014. FINDINGS: NECK AND VISUALIZED HEAD: New since the 02/15/2023 PET/CT scan is a large right sided supraclavicular mass that invades the lateral half of the right clavicle and extends into the superior aspect of the right scapula. This shows SUVmax 19.8, slice 45/267. On the CT images this mass, including the portion within the superior aspect of the right scapula measures 10.1 x 5.1 cm in largest transverse dimensions and approximately 4.9 cm cephalocaudad. Abnormal FDG activity extends throughout the entire length of the right clavicle, but the most medial aspect of this is not included in these measurements of the overall soft tissue mass. A contiguous mass extending across the midline with extensive erosions in the sternal manubrium, the bilateral first ribs, as well as the medial aspects of both clavicles is hearing measured as a separate mass with SUVmax 39.6, slice 59/267. This has sharp margins on the FDG PET images, and measured on the latter shows a maximum transverse dimensions of 9.6 x 6.4 cm and 5.0 cm cephalocaudad. This is much larger in more intensely FDG avid than on 02/15/2023. There is an FDG avid right cervical level 1B lymph node, SUVmax 6.2, slice 33/267 that was not present on the most recent PET/CT scan dated 02/15/2023. A left parotid subcentimeter FDG avid lymph node is similar in appearance to 02/15/2023 now showing SUVmax 3.6, slice 17/267 versus SUVmax 4.1 on 02/15/2023. A left sided postauricular FDG avid lymph node present on 02/15/2023 is no longer present. Other than a few additional FDG avid osseous lesions subsequently discussed, no other foci of abnormal FDG activity are present in the neck or visualized head. THORAX: In addition to the midline supraclavicular mass discussed above which extends into the superior aspect of the anterior mediastinum, and several osseous lesions subsequently discussed, there are no additional foci of abnormal FDG activity in the chest. There is some linear scarring or atelectasis present in the lung bases bilaterally, slightly more prominent at the left lung base where this was not present on 02/15/2023, but otherwise unchanged from prior studies, and showing no abnormal FDG activity. No additional mediastinal or axillary lymphadenopathy is present. A right-sided chest port with internal jugular catheter terminating in the superior vena cava is noted. ABDOMEN AND PELVIS: There are 2 new FDG avid foci present in the superior aspect of the stomach, most intense is the more superior of the 2, showing SUVmax 6.7, slice 106/267. No corresponding CT abnormalities are present on these nondiagnostic CT images performed without oral or intravenous contrast. There is a small FDG avid focus that is probably in the moose hepatis with no corresponding CT abnormality, slice 124/267. A more intense focus in liver Couinaud segment 6 shows SUVmax 4.8, slice 136/267, possibly with a subtle hypodensity on the CT images at this site, but this is not well delineated on the CT images. All these abdominal foci are new since the 02 15 prior PET/CT scan. There are no additional foci of abnormal FDG activity in the abdomen or pelvis. Very mild diffuse FDG activity is present throughout the gastrointestinal tract without a suspicious focal component, and likely physiological. There is diverticulosis without evidence of diverticulitis. The hollow viscera are otherwise unremarkable. A few calcified uterine fibroids are present, unchanged from prior studies. The pelvic organs are otherwise unremarkable. The spleen, kidneys, adrenal glands and pancreas are unremarkable. There is no additional retroperitoneal, mesenteric, pelvic or inguinal lymphadenopathy. Bilateral FDG avid inguinal lymph nodes present on 02/15/2023 are no longer present. MUSCULOSKELETAL: In addition to the intensely FDG avid masses invading both clavicles, additional FDG avid lesions are present involving a few ribs, the inferior aspect of the sternum, the left scapula the left sacral alar and an intense lesion partially visualized in the distal visualized aspect of the left femur, the latter showing SUVmax 11.9, slice 261/267. This lesion was just outside the [id number] of all of the prior PET/CT scans and cannot be compared to any of the latter. VASCULAR: Diffuse vascular calcifications including coronary artery noted. Reference SUVmax Levels: Mediastinal Blood Pool: 1.5, Slice 80/267 Liver: 2.4, Slice 121/267 PET/PET CT fusion skull to thigh IMPRESSION: 1. There is marked progression of metastatic malignant disease, as described above. The most prominent change since the 02/15/2023 PET/CT scan is development of an extensive right supraclavicular mass that extends across the midline which extensively invades the right clavicle, the medial aspect of the left clavicle and the superior aspect of the sternum with significant soft tissue mass present in the superior aspect of the anterior mediastinum. 2. Additional new FDG avid foci are present at 2 sites in the superior aspect of the stomach, the right lobe of the liver, and the moose hepatis region. These are all new since 02/16/2024. 3. A left parotid lymph node appears similar to 02/16/2024, but a left postauricular lymph node has resolved. A discrete right supraclavicular lymph node separate from the previously described mass is new since 02/15/2023. 4. Multiple FDG avid osseous lesions are present, some of which are new. An intensely FDG avid lesion in the midshaft of the left clavicle is noted, and this is outside the field of view of all of the prior PET/CT scans. 5. Using the 5 point Deauville scale, this patient would be classified as a Deauville score of 5. Reference: Deauville Score: Score 1: No uptake above the background Score 2: Uptake not greater than mediastinum Score 3: Uptake greater than mediastinum but less than liver Score 4: Uptake slightly to moderately increased compared to the liver Score 5: Uptake markedly increased compared to the liver or any new lesion Score X: Foci of uptake unlikely to be related to lymphoma Electronically signed by: Ranjan Duggan MD 11/29/2023 02:12 PM EDT
== END 2023-11-21 07:52 | disposition home or self-care (01) ==
LOC: HO.PET 07:51
PROVIDERS: PCP Internal Medicine Medical Oncology; Visit Provider Internal Medicine
DX: Z13.89 Encounter for screening for other disorder (principal)

== ENCOUNTER → 2023-11-22 13:03 | Outpatient (REF) | payer MEDICARE, OTHER, SELFPAY ==
--- NOTE | 2023-11-22 13:07 | HM_ITS ---
Conclusion: 1. Patient was monitored for total period of 5 days and 14 hours 2. Baseline was normal sinus rhythm with average heart of 87 beats per minute 3. Rare PACs and PVCs noted 4. No significant pauses noted 5. No patient reported events MTDD
== END ==
LOC: HO.CARD 13:03
PROVIDERS: PCP Internal Medicine Medical Oncology; Visit Provider Nurse Practitioner Family
DX: R55 Syncope and collapse (principal)
CPT/HCPCS: 93242

== ENCOUNTER → 2023-11-22 13:07 | Outpatient (BNV) | payer MEDICARE, OTHER, SELFPAY | PROVIDERS: PCP Internal Medicine Medical Oncology; Visit Provider Internal Medicine Cardiovascular Disease | DX: I49.1 Atrial premature depolarization (principal); I49.3 Ventricular premature depolarization | CPT/HCPCS: 93244 ==

== ENCOUNTER 2023-12-20 12:30 | Outpatient (REF) | payer MEDICARE, OTHER, SELFPAY ==
--- NOTE | ~2023-12-20 | US_ITS ---
History: 83-year-old female with non-Hodgkin's lymphoma and disease progression. PROCEDURES: 1. Limited preprocedure ultrasound of the neck. Permanent images saved in PACS. 2. Ultrasound-guided biopsy of the right supraclavicular mass. 3. Limited postprocedure ultrasound of the neck. Permanent images saved in PACS. CLINICIANS: Marlon Bobo PA-C MEDICATIONS: -Lidocaine 1% 10 mL SQ -Antibiotics: None -For additional details, please see nursing flowsheet. COMPLICATIONS: None ESTIMATED BLOOD LOSS: < 5 ml CONTRAST: None SPECIMENS: 6 x 18 g cores were sent for pathology and flow cytometry PROCEDURE NOTE: The procedure, risks, benefits, and alternatives were carefully explained to the patient and written informed consent was obtained. The patient was placed supine on the exam table. A timeout was performed. A limited ultrasound of the neck was performed to localize the right supraclavicular mass and choose appropriate needle entry and trajectory. The patient was prepped and draped in usual sterile fashion. The skin and deeper soft tissues were anesthetized with lidocaine. Under ultrasound guidance, a 17 gauge trocar needle was advanced into the right supraclavicular mass. An 18 gauge biopsy device was inserted through the trocar needle advanced into the mass. A total of 6, 18 gauge cores were performed. The specimens were placed in formalin and RPMI. The needle was removed. A limited post procedure ultrasound was then performed. Images were saved in PACS. A dry dressing was applied and secured with Tegaderm. There were no immediate complications. The patient was stable after the procedure and discharged home. US/US biopsy lymph node Impression: Ultrasound-guided biopsy of the right supraclavicular mass. This procedure was performed by Marlon Bobo PA-C and supervised by Dr. Mcgowan. Electronically signed by: Josr Mcgowan MD 12/29/2023 02:10 PM EDT
[2023-12-20] MEDS: Lidocaine HCl 1 % MPF 5 ML VIAL SUBCUT (13:57)
== END 2023-12-20 12:31 | disposition home or self-care (01) ==
LOC: HO.US 12:30
PROVIDERS: Pathology Anatomic Pathology & Clinical Pathology; PCP Internal Medicine Medical Oncology; Visit Provider Internal Medicine
DX: C85.90 Non-Hodgkin lymphoma, unspecified, unspecified site (principal)
CPT/HCPCS: 36415; 38505; 76942; 88184; 88185; 88300; 88305; 88341; 88342; 88360; J2003

== ENCOUNTER → 2023-12-20 12:32 | Outpatient (BNV) | payer MEDICARE, OTHER, SELFPAY | PROVIDERS: PCP Internal Medicine Medical Oncology; Visit Provider Physician Assistant Surgical | DX: C85.90 Non-Hodgkin lymphoma, unspecified, unspecified site (principal) | CPT/HCPCS: 38505; 76942 ==